=== PATIENT | female | born 1995 | race Caucasian/White ===

== ENCOUNTER → 2016-12-05 | Outpatient (CLI) | payer OTHER ==
[2016-12-05 12:25] LABS: Basophils % (A) 1 %; CH 27.2; CHCM 32.5; Eosinophils % (A) 1 %; HCT 45.2 % (34.0-46.0); HDW 2.44; HGB 14.5 gm/dL (11.4-16.0); Luc # (Auto) 0.13; Luc % (Auto) 4; Lymphocytes # (A) 1.4 k/uL (1.0-4.8); Lymphocytes % (A) 41 %; MCH 26.9 pg (25.0-35.0); MCV 84.1 fL (80.0-100.0); Mean Platelet Volume 6.1; Monocytes # (A) 0.3 k/uL (0-1.0); Monocytes % (A) 9 %; Neutrophils # (A) 1.5 k/uL (1.3-7.7); Neutrophils % (A) 45 %; RBC 5.38 m/uL (3.80-5.40); RDW 13.5 % (11.5-15.5); WBC 3.4 k/uL (4.0-11.0); WBC (Perox) 3.48
[2016-12-05 13:08] LABS: ALT 23 U/L (9-52); AST 19 U/L (14-36); Alkaline Phosphatase 66 U/L (38-126); Anion Gap 11 mmol/L; Blood Urea Nitrogen 14 mg/dL (7-17); Calcium 9.1 mg/dL (8.4-10.2); Carbon Dioxide 24 mmol/L (22-30); Chloride 105 mmol/L (98-107); Cholesterol 155 mg/dL (<200); Glucose 93 mg/dL (74-99); HDL Cholesterol 55 mg/dL (40-60); Non-African American GFR(MDRD) >60 (>60 ml/min/1.73 sqM); Potassium 3.8 mmol/L (3.5-5.1); Sodium 140 mmol/L (137-145); Total Bilirubin 0.6 mg/dL (0.2-1.3); Total Protein 6.5 g/dL (6.3-8.2); Triglycerides 81 mg/dL (<150)
== END | disposition home or self-care (01) ==
LOC: LABWHC1 12:00
PROVIDERS: ATTEND Family Medicine
DX: Z00.01 Encounter for general adult medical examination with abnormal findings (principal); R62.50 Unspecified lack of expected normal physiological development in childhood
CPT/HCPCS: 36415; 80053; 80061; 84443; 85025

== ENCOUNTER 2017-08-07 10:30 | Emergency (ER) | payer OTHER ==
[2017-08-07 10:46] VITALS: PULSE 78; TEMP 97.5
[2017-08-07 10:51] VITALS: RESP 18
--- NOTE | 2017-08-07 11:15 | ED ---
General Adult HPI - General Chief complaint: Fever Stated complaint: Not eating or sleeping Time Seen by Provider: 08/07/17 10:49 Source: patient, family, RN notes reviewed Mode of arrival: wheelchair Limitations: no limitations - History of Present Illness Initial comments: Complaint and history of present illness is a 21-year-old female with severe Down syndrome. Here with her mother. Mother reports that her daughter has not been eating or drinking much lately. Acting as though she is ill. Patient is unable to describe any feelings. Recently the patient was placed on medication for thrush. The thrush has since gone away. Mother is worried about a possible pneumonia or influenza. - Related Data Home Medications Medication Instructions Recorded Confirmed Cephalexin [Keflex Susp] 250 mg PO TID 08/07/17 08/07/17 Nystatin 100,000Unit/gm Cream 1 applic TOPICAL DAILY 08/07/17 08/07/17 [Mycostatin Cream] Previous Rx's Medication Instructions Recorded Azithromycin [Zithromax Z-pack] 250 mg PO DIRECTED #6 tab 08/07/17 Allergies Allergy/AdvReac Type Severity Reaction Status Date / Time No Known Allergies Allergy Verified 08/07/17 11:14 Review of Systems ROS Statement: Those systems with pertinent positive or pertinent negative responses have been documented in the HPI. Review of systems; patient is unable to answer any questions. Mother reports past medical problems or just Down's syndrome with severe mental retardation. Patient ambulatory only with assistance. The patient's surgeries include ear tubes, and right mastoidectomy. family history no cancers. ALLERGIES none. ROS Other: All systems not noted in ROS Statement are negative. Past Medical History Additional Past Medical History / Comment(s): per mom "no name for her handicap " History of Any Multi-Drug Resistant Organisms: None Reported Past Surgical History: Ear Surgery Additional Past Surgical History / Comment(s): mastoidectomy Past Psychological History: No Psychological Hx Reported Smoking Status: Never smoker Past Alcohol Use History: None Reported Past Drug Use History: None Reported General Exam - General Exam Comments Initial Comments: General: The patient is awake , severe mental retardation, Down syndrome. Noncommunicative. Mother thinks she may have pneumonia or the flu. Child had a fever last week currently afebrile. Recently treated for thrush. Temp 97.5 pulse 78 respiratory rate 20 pulse ox 90% on room air patient not cooperative at might affect the calibration. Eye: Is cross eyed. Pupils equal. Ears, nose, mouth and throat: Mother was able to pry the mouth open this membranes were moist. No evidence of thrush. Neck: Palpable anterior cervical lymphadenopathy. Cardiovascular: Regular heart rate Respiratory: lungs clear to auscultation. Gastrointestinal: Palpation in the abdomen, does not appear to be tender. Back: She is not cooperative enough to determine if there is tenderness to palpation of the extremities. Musculoskeletal: Muscle wasting, chronic due to neurological disorder. Neurological: Severe mental retardation Skin: No rashes Cooperative, appropriate mood & affect, normal judgment. Limitations: no limitations Course Vital Signs 08/07/17 08/07/17 10:42 10:50 Temperature 97.5 F L Pulse Rate 78 Respiratory 18 Rate O2 Sat by Pulse 92 L Oximetry Medical Decision Making - Medical Decision Making Medical decision making; this is a 21-year-old patient with the mother. Weighs 72 pounds. Severely mentally retarded. Influenza AB reported to be negative. Chest x-ray was done and reviewed by radiologist his impression is there is no pleural effusion, or pneumothorax seen. Difficult to exclude airspace disease on the left. Cardiac silhouette size is within normal limits. Underlying scoliosis is again noted. The osseous structures are intact. Impression difficult to exclude pneumonia. As read by Dr. Rene - Lab Data Lab Results 08/07/17 Range/Units 11:18 Influenza Type A RNA Not Detected (Not Detectd) Influenza Type B (PCR) Not Detected (Not Detectd) Disposition Clinical Impression: Infiltrate of lung present on imaging of chest Disposition: HOME SELF-CARE Condition: Stable Instructions: Fever in Adults (ED), Pneumonitis (ED) Additional Instructions: Encouraged fluids. Provide medications as directed. Follow-up family physician return emergency room should be any changes. Prescriptions: Azithromycin [Zithromax Z-pack] 250 mg PO DIRECTED #6 tab Referrals: Kelly Lyn MD [Primary Care Provider] - 1-2 days Time of Disposition: 12:23
--- NOTE | 2017-08-07 11:52 | XR ---
EXAMINATION TYPE: XR chest 1V portable DATE OF EXAM: 08/07/2017 COMPARISON: Prior chest x-ray 03/02/2013 HISTORY: Cough, Down syndrome TECHNIQUE: Single frontal view of the chest is obtained. FINDINGS: There is no pleural effusion, or pneumothorax seen. Difficult to exclude airspace disease on the left. The cardiac silhouette size is within normal limits. Underlying scoliosis is again note d. The osseous structures are intact. IMPRESSION: Difficult to exclude pneumonia.
== END 2017-08-07 12:28 | disposition home or self-care (01) ==
LOC: EC 10:30
DX: R91.8 Other nonspecific abnormal finding of lung field (principal); Z79.899 Other long term (current) drug therapy
CPT/HCPCS: 71045; 87502; 99283

== ENCOUNTER 2017-08-29 16:13 | Inpatient (IN) | payer OTHER ==
[2017-08-29] MEDS ORDERED: ACETAMINOPHEN TAB 500 MG TAB PO STA (16:51)
--- NOTE | 2017-08-29 17:07 | ED ---
Fever HPI - General Chief Complaint: Fever Stated Complaint: High Fever, Chills, Flu 2 weeks ago Time Seen by Provider: 08/29/17 16:36 Source: family Mode of arrival: wheelchair Limitations: altered mental status, physical limitation - History of Present Illness Initial Comments: This is a 21-year-old female who presents with a chief complaint of fever which began today. The patient's history was taken from her mother because the patient is non-verbal. She denies nausea, vomiting, diarrhea, cough, or congestion. She recently was diagnosed with pneumonia, and treated outpatient with azithromycin. Her symptoms resolved after completion of the antibiotic. She has not had any symptoms until the fever today. - Related Data Home Medications Medication Instructions Recorded Confirmed L.acidoph,Paracasei, B.lactis 1 cap PO DAILY 08/29/17 08/29/17 [Probiotic] Allergies Allergy/AdvReac Type Severity Reaction Status Date / Time No Known Allergies Allergy Verified 08/29/17 16:50 Review of Systems ROS Statement: Those systems with pertinent positive or pertinent negative responses have been documented in the HPI. ROS Other: All systems not noted in ROS Statement are negative. Past Medical History Additional Past Medical History / Comment(s): per mom "no name for her handicap " History of Any Multi-Drug Resistant Organisms: None Reported Past Surgical History: Ear Surgery Additional Past Surgical History / Comment(s): mastoidectomy Past Psychological History: No Psychological Hx Reported Smoking Status: Never smoker Past Alcohol Use History: None Reported Past Drug Use History: None Reported General Exam Limitations: altered mental status, physical limitation General appearance: alert, in no apparent distress Head exam: Present: atraumatic, normocephalic, normal inspection Neck exam: Present: normal inspection. Absent: tenderness, meningismus, lymphadenopathy Respiratory exam: Present: normal lung sounds bilaterally. Absent: respiratory distress, wheezes, rales, rhonchi, stridor Cardiovascular Exam: Present: tachycardia GI/Abdominal exam: Present: soft, normal bowel sounds. Absent: distended, tenderness, guarding, rebound, rigid Back exam: Present: normal inspection Neurological exam: Present: alert Psychiatric exam: Present: normal affect, normal mood Skin exam: Present: warm, dry, intact, normal color. Absent: rash Course Vital Signs 08/29/17 08/29/17 08/29/17 16:17 17:36 18:58 Temperature 101.0 F H Pulse Rate 138 H 140 H Respiratory 24 19 22 Rate Blood Pressure 126/60 O2 Sat by Pulse 97 95 Oximetry Medical Decision Making - Medical Decision Making This 21-year-old patient presented with a fever that began today. The patient was given Tylenol and Benadryl to reduce the fever. She was also given IV fluids. Chest x-ray reveals evidence of pneumonia. She was negative for Influenza. The remaining labs were unremarkable. Blood cultures are still pending. Due to the patient's failed outpatient treatment of pneumonia and her current symptoms, she will be admitted for treatment. - Lab Data Result diagrams: 08/29/17 17:42 08/29/17 17:42 Lab Results 08/29/17 08/29/17 08/29/17 Range/Units 16:52 17:42 17:42 WBC 5.1 (4.0-11.0) k/uL RBC 5.24 (3.80-5.40) m/uL Hgb 13.8 (11.4-16.0) gm/dL Hct 42.4 (34.0-46.0) % MCV 81.0 (80.0-100.0) fL MCH 26.4 (25.0-35.0) pg MCHC 32.6 (31.0-37.0) g/dL RDW 13.1 (11.5-15.5) % Plt Count 257 (150-450) k/uL Neutrophils % 77 % Lymphocytes % 9 % Monocytes % 12 % Eosinophils % 0 % Basophils % 1 % Neutrophils # 3.9 (1.3-7.7) k/uL Lymphocytes # 0.4 L (1.0-4.8) k/uL Monocytes # 0.6 (0-1.0) k/uL Eosinophils # 0.0 (0-0.7) k/uL Basophils # 0.0 (0-0.2) k/uL Sodium 138 (137-145) mmol/L Potassium 4.1 (3.5-5.1) mmol/L Chloride 100 (98-107) mmol/L Carbon Dioxide 25 (22-30) mmol/L Anion Gap 13 mmol/L BUN 14 (7-17) mg/dL Creatinine 0.90 (0.52-1.04) mg/dL Est GFR (MDRD) Af Amer >60 (>60 ml/min/1.73 sqM) Est GFR (MDRD) Non-Af >60 (>60 ml/min/1.73 sqM) Glucose 138 H (74-99) mg/dL Plasma Lactic Acid Justin (0.7-2.0) mmol/L Calcium 9.7 (8.4-10.2) mg/dL Total Bilirubin 0.3 (0.2-1.3) mg/dL AST 41 H (14-36) U/L ALT 23 (9-52) U/L Alkaline Phosphatase 67 (38-126) U/L Total Protein 7.2 (6.3-8.2) g/dL Albumin 4.0 (3.5-5.0) g/dL Influenza Type A RNA Not Detected (Not Detectd) Influenza Type B (PCR) Not Detected (Not Detectd) 08/29/17 Range/Units 17:42 WBC (4.0-11.0) k/uL RBC (3.80-5.40) m/uL Hgb (11.4-16.0) gm/dL Hct (34.0-46.0) % MCV (80.0-100.0) fL MCH (25.0-35.0) pg MCHC (31.0-37.0) g/dL RDW (11.5-15.5) % Plt Count (150-450) k/uL Neutrophils % % Lymphocytes % % Monocytes % % Eosinophils % % Basophils % % Neutrophils # (1.3-7.7) k/uL Lymphocytes # (1.0-4.8) k/uL Monocytes # (0-1.0) k/uL Eosinophils # (0-0.7) k/uL Basophils # (0-0.2) k/uL Sodium (137-145) mmol/L Potassium (3.5-5.1) mmol/L Chloride (98-107) mmol/L Carbon Dioxide (22-30) mmol/L Anion Gap mmol/L BUN (7-17) mg/dL Creatinine (0.52-1.04) mg/dL Est GFR (MDRD) Af Amer (>60 ml/min/1.73 sqM) Est GFR (MDRD) Non-Af (>60 ml/min/1.73 sqM) Glucose (74-99) mg/dL Plasma Lactic Acid Justin 1.5 (0.7-2.0) mmol/L Calcium (8.4-10.2) mg/dL Total Bilirubin (0.2-1.3) mg/dL AST (14-36) U/L ALT (9-52) U/L Alkaline Phosphatase (38-126) U/L Total Protein (6.3-8.2) g/dL Albumin (3.5-5.0) g/dL Influenza Type A RNA (Not Detectd) Influenza Type B (PCR) (Not Detectd) Disposition Clinical Impression: Fever, Pneumonia Disposition: ADMITTED IP TO THIS HOSP Condition: Stable Referrals: Kelyl Lyn MD [Primary Care Provider] - 1-2 days Decision Date: 08/29/17 Decision Time: 19:07
--- NOTE | 2017-08-29 17:18 | XR ---
EXAMINATION TYPE: XR chest 2V DATE OF EXAM: 08/29/2017 COMPARISON: Chest x-ray August 07, 2017 HISTORY: Flulike symptoms. History of Down syndrome. TECHNIQUE: Frontal and lateral views of the chest are obtained. FINDINGS: Underlying scoliosis is redemonstrated. There is persistent left hilar opacity. The cardia c silhouette size is stable and upper limits of normal. The osseous structures are intact. IMPRESSION: Possible persistent left midlung infiltrate. No new infiltrate is seen.
[2017-08-29 18:03] LABS: Basophils % (A) 1 %; Eosinophils % (A) 0 %; HCT 42.4 % (34.0-46.0); HGB 13.8 gm/dL (11.4-16.0); Lymphocytes # (A) 0.4 k/uL (1.0-4.8); Lymphocytes % (A) 9 %; MCH 26.4 pg (25.0-35.0); MCHC 32.6 g/dL (31.0-37.0); Mean Platelet Volume 6.5; Monocytes # (A) 0.6 k/uL (0-1.0); Monocytes % (A) 12 %; Neutrophils # (A) 3.9 k/uL (1.3-7.7); Neutrophils % (A) 77 %; Platelet Count 257 k/uL (150-450); RBC 5.24 m/uL (3.80-5.40); RDW 13.1 % (11.5-15.5); WBC 5.1 k/uL (4.0-11.0)
[2017-08-29 18:33] LABS: ALT 23 U/L (9-52); AST 41 U/L (14-36); Alkaline Phosphatase 67 U/L (38-126); Anion Gap 13 mmol/L; Blood Urea Nitrogen 14 mg/dL (7-17); Calcium 9.7 mg/dL (8.4-10.2); Carbon Dioxide 25 mmol/L (22-30); Chloride 100 mmol/L (98-107); Glucose 138 mg/dL (74-99); Potassium 4.1 mmol/L (3.5-5.1); Sodium 138 mmol/L (137-145); Total Bilirubin 0.3 mg/dL (0.2-1.3); Total Protein 7.2 g/dL (6.3-8.2)
[2017-08-29] MEDS ORDERED: diphenhydrAMINE 50 MG/ML 1 ML VIAL IVP STA (18:36)
[2017-08-29] MEDS ORDERED: SODIUM CHLORIDE 0.9% 1,000 ML IV ONE (18:42)
[2017-08-29] MEDS ORDERED: PNEUMONIA PROTOCOL UTILIZED 1 EACH MISC PO PRN (19:07)
[2017-08-29] MEDS ORDERED: LEVOFLOXACIN 750MG-D5W PMX 500 MG in DEXTROSE/WATER 1 150ML.BAG IVPB STA (19:07)
[2017-08-29] MEDS ORDERED: VANCOMYCIN IV PER PHARMACY 1 EACH MISC MISCELLANE PRN (19:12)
[2017-08-29] MEDS ORDERED: ACETAMINOPHEN TAB 500 MG TAB PO PRN (19:13)
[2017-08-29] MEDS ORDERED: VANCOMYCIN 500 MG in SODIUM CHLORIDE 0.9% 250 ML IVPB STA (19:23)
[2017-08-29] MEDS ORDERED: LORazepam 2 MG/ML INJ IV STA (20:27)
[2017-08-29] MEDS ORDERED: ACETAMINOPHEN SUPPOSITORY 650 MG SUPP RECTAL STA (21:00)
[2017-08-29 22:52] VITALS: BMI 20.7
[2017-08-30] MEDS: METOPROLOL TARTRATE 12.5 MG TAB PO SCH ×3 (00:21→21:46)
[2017-08-30] MEDS: SODIUM CHLORIDE 0.9% 1,000 ML IV SCH ×2 (03:48→13:11)
[2017-08-30] MEDS: PIPERACILLIN-TAZOBACTAM 3.375 GM in DEXTROSE/WATER 1 50ML.BAG IVPB SCH ×3 (04:31→18:31)
--- NOTE | 2017-08-30 05:30 | HP ---
HISTORY AND PHYSICAL DATE OF ADMISSION: 08/29/17 CHIEF COMPLAINTS: Fever and chills and history of recent flu. 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 Kelly Lyn in the outpatient setting was sick since July first week according to the mother, the patient initially had flu symptoms. Subsequently patient had apparently pneumonia and the patient taken to emergency room and was given antibiotics. The patient was going to school and the patient was having fever and chills and the patient was taken to [facility] and admitted for further evaluation and treatment. Currently the patient is unresponsive. Most of the history taken in my discussion with staff and as well as review of chart and discussion with the mother who is at the bedside at this time. A chest x-ray which was personally reviewed by me, showed possible left mid lung infiltrate and the patient was admitted for further evaluation and treatment. PAST MEDICAL HISTORY: History of chromosome deletion syndrome, history of seizure disorder, mastoidectomy, history of recent flu and pneumonia. MEDICATIONS: Home medications are: Lactobacillus acidophilus 1 capsule daily. ALLERGIES: None. Family history, social history and review of systems could not be taken at length because of the change in mental status. PHYSICAL EXAM: Patient is stuporous. Pulse is 119, blood pressure is 154/70, respiration 22, temperature 100 degrees, pulse ox 99% on room air. HEENT: Conjunctivae normal. Oral mucosa moist. Neck is no jugular venous distention. No carotid bruit. No lymph nodes enlargement. Cardiovascular S1-S2. No S3, no S4. RESPIRATORY: Breath sounds diminished in the bases. Bilateral scattered rhonchi and crackles. ABDOMEN: Soft, nontender. No mass palpable. Legs no edema. No swelling. NERVOUS SYSTEM: Higher functions as mentioned earlier, moves all 4 limbs, no focal motor or sensory deficits. Lymphatics: No lymph nodes palpable in the neck, axillae or groin. Skin no ulcer, rash, bleeding. LABS: CBC within normal limits. Glucose 138, AST is 41. Influenza is negative. ASSESSMENT: 1. Acute left lower pneumonia possibly gram-negative or aspiration or gram- positive with sepsis. 2. History of recent influenza. 3. Change in mental status, metabolic encephalopathy. 4. 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 5. Increased random blood sugar. 6. History of seizures. 7. History of mastoidectomy. 8. History of ear tubes. 9. History of ovarian ablation. RECOMMENDATIONS AND DISCUSSION: This 21-year-old woman who presented with multiple complex medical issues, we will monitor the patient closely, continue the current treatment, medications, management and symptomatic treatment. Will initiate bronchodilators and empiric antibiotics. Obtain cultures. I would also recommend Pulmonary consultation as well as Infectious Disease consultation. Telemetry. Guarded prognosis because of multiple complex medical issues. Further recommendations to follow. A copy of this dictation being forwarded to Eboni Obrien, who is the primary physician. JOSUE / SNOWN: [id number] / MTDBentley
[2017-08-30] MEDS ORDERED: ACETAMINOPHEN TAB 500 MG TAB PO PRN (07:45)
[2017-08-30] MEDS: LACTOBACILLUS ACIDOPH & BULGAR 1 EACH PACKET PO SCH (07:51)
[2017-08-30] MEDS: HEPARIN SODIUM,PORCINE 5,000 UNIT/ML 1 ML VIAL SQ SCH ×2 (07:51→21:46)
[2017-08-30] MEDS: VANCOMYCIN 500 MG in SODIUM CHLORIDE 0.9% 250 ML IVPB SCH ×2 (08:06→16:27)
[2017-08-30] MEDS: IPRATROPIUM-ALBUTEROL 3 ML NEB INHALATION SCH ×3 (08:45→20:46)
[2017-08-30] MEDS: IBUPROFEN ORAL SUSP 100 MG/5 ML CUP PO PRN ×2 (09:54→23:05)
[2017-08-30] MEDS ORDERED: .ACETAMINOPHEN IV (PEDS) 460 MG in EMPTY BAG 1 BAG IV PRN (11:11)
--- NOTE | 2017-08-30 12:19 | XR ---
EXAMINATION TYPE: XR chest 1V portable DATE OF EXAM: 08/30/2017 COMPARISON: 08/29/2017 INDICATION: Pneumonia TECHNIQUE: Single frontal view of the chest is obtained. FINDINGS: Cardiothymic silhouette appears normal. The pulmonary vasculature is normal. The lungs are clear. Left lung appear clear Scoliosis is present. IMPRESSION: 1. No acute pulmonary process.
--- NOTE | 2017-08-30 14:27 | P.CNPUL ---
History of Present Illness Consult date: 08/30/17 Requesting physician: Ahsan Root Reason for consult: cough, pneumonia, abnormal CXR/CT Chief complaint: High fever, chills, congestive cough, weakness and lethargy History of present illness: Elzbieta is a 21-year-old white female patient, who has an underlying history of chromosomal deletion syndrome, severe developmental challenges, seizure disorder , who was brought to the hospital by her mother on 08/29/2017 at 1613 with complaints of high fevers of 102.7F, chills, lethargy, weakness, congested cough. Patient was recently diagnosed with pneumonia, and was treated on an outpatient basis with azithromycin. Her symptoms improved after completion of the antibiotic, and patient started attending school again at the [employer]. However at school she was noted to spike high fevers again, was increasingly more lethargic and weak, and the parents took her to the hospital. Patient is nonverbal, she only groans, patient's mother is at the bedside and provided much of the history. Chest x- ray from 08/30/2017 showed no acute cardiopulmonary process, patient was noted to have a severe degree of scoliosis. This was a 1 view frontal film, cannot exclude retrocardiac bronchogram, cannot exclude pneumonia. Blood work showed WBC within normal limits of 5.1, hemoglobin of 13.8, electrolytes were within normal limits, normal renal profile, plasma lactic acid was 1.5, influenza screen was negative. Patient presented with a fever of 10 1F, this morning she had a fever as high as 103F. She is tachycardic, her heart rate was initially 136 BPM on admission, currently down to 106 BPM. She is on room air, with a pulse ox of 90% on room air. Her lung sounds are clear, diminished at the bases, no rhonchi or wheezes noted. Patient is resting quietly in bed, on examination she becomes slightly agitated, and groans and tries to get away from the examiner. Per patient's mother, patient is normally very energetic, and outgoing. And her current mentation is a change from her usual baseline. Patient was given a liter of IV 0.9 normal saline bolus, she was started on Zosyn and vancomycin, as well as nebulized treatments. Blood and urine cultures were collected and sent. Sputum culture was ordered, but patient is not expectorating any phlegm. Review of Systems All systems: negative Constitutional: Reports fatigue, Reports lethargy, Reports malaise, Reports weakness, Denies chills, Denies fever Eyes: denies blurred vision, denies pain Ears, nose, mouth and throat: Denies headache, Denies sore throat Cardiovascular: Denies chest pain, Denies shortness of breath Respiratory: Reports respiratory infections, Denies cough Gastrointestinal: Denies abdominal pain, Denies diarrhea, Denies nausea, Denies vomiting Genitourinary: Denies dysuria, Denies hematuria Musculoskeletal: Denies myalgias Integumentary: Denies pruritus, Denies rash Neurological: Denies numbness, Denies weakness Psychiatric: Denies anxiety, Denies depression Endocrine: Denies fatigue, Denies weight change Past Medical History Additional Past Medical History / Comment(s): per mom "no name for her disability" 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 Had seizures last one 7 years ago, mastiodectomy, Ablation ovarian. (to end menstruation) History of Any Multi-Drug Resistant Organisms: None Reported Past Surgical History: Ear Surgery Additional Past Surgical History / Comment(s): mastoidectomy, Ear tubes 7 sets. Past Anesthesia/Blood Transfusion Reactions: No Reported Reaction Past Psychological History: No Psychological Hx Reported Smoking Status: Never smoker Past Alcohol Use History: None Reported Past Drug Use History: None Reported Medications and Allergies Home Medications Medication Instructions Recorded Confirmed Type L.acidoph,Paracasei, B.lactis 1 cap PO DAILY 08/29/17 08/29/17 History [Probiotic] Allergies Allergy/AdvReac Type Severity Reaction Status Date / Time No Known Allergies Allergy Verified 08/29/17 16:50 Physical Exam Vitals: Vital Signs Temp Pulse Pulse Resp BP BP BP 08/30/17 10:37 99.7 F H 08/30/17 09:00 80 08/30/17 08:54 80 08/30/17 07:00 103.0 F H 106 H 16 106/87 08/30/17 04:46 16 08/29/17 23:27 98.2 F 136 H 16 107/80 08/29/17 21:31 100.0 F H 119 H 22 155/70 08/29/17 20:45 136 H 08/29/17 18:58 140 H 22 126/60 08/29/17 17:36 19 08/29/17 16:17 101.0 F H 138 H 24 Pulse Ox 08/30/17 10:37 08/30/17 09:00 08/30/17 08:54 08/30/17 07:00 90 L 08/30/17 04:46 08/29/17 23:27 92 L 08/29/17 21:31 99 08/29/17 20:45 95 08/29/17 18:58 95 08/29/17 17:36 08/29/17 16:17 97 Intake and Output 08/29/17 08/30/17 08/30/17 22:59 06:59 14:59 Intake Total 900 Balance 900 Intake: Intake, IV Titration 900 Amount Piperacillin-Tazobactam 3 50 .375 gm In Dextrose/Water 1 50ml.bag @ 100 mls/hr IVPB Q8HR DION Rx#: [id number] Sodium Chloride 0.9% 1, 600 000 ml @ 40 mls/hr IV . Q24H DION Rx#:[id number] Vancomycin 500 mg In 250 Sodium Chloride 0.9% 250 ml @ 125 mls/hr IVPB Q8H DION Rx#:[id number] Other: Voiding Method Diaper Diaper # Voids 2 Weight 30.844 kg GENERAL EXAM: 21-year-old white female, thin, appears much younger than stated age, with signs of developmental delay, resting quietly in bed, withdrawn, unless touched. Becomes agitated with examination, does not like to be touched other than by her mother. The mother's assistance was requested with the patient's exam. Patient's bilateral arms and hands are wrapped with Kerlix for protection of the IV lines HEAD: Normocephalic/atraumatic. EYES: Normal reaction of pupils, equal size. Conjunctiva pink, sclera white. NOSE: Clear with pink turbinates. THROAT: No erythema or exudates. NECK: No masses, no JVD, no thyroid enlargement, no adenopathy. CHEST: Patient has a severe scoliosis of the spine LUNGS: Lung sounds are diminished, but no rhonchi, no rales noted. CVS: Regular rate and rhythm, normal S1 and S2, no gallops, no murmurs, no rubs ABDOMEN: Soft, nontender. No hepatosplenomegaly, normal bowel sounds, no guarding or rigidity. EXTREMITIES: No clubbing, no edema, no cyanosis, 2+ pulses and upper and lower extremities. MUSCULOSKELETAL: Muscle strength and tone normal. Both upper arms and hands are wrapped with Kerlix dressings for protection of the IV lines SPINE: No scoliosis or deformity SKIN: No rashes CENTRAL NERVOUS SYSTEM: Lethargic, but becomes agitated with examination, tries to avoid examination. No focal deficits, tone is normal in all 4 extremities. PSYCHIATRIC: Lethargic, groans, slightly agitated, nonverbal. Results - Laboratory Findings CBC and BMP: 08/29/17 17:42 08/29/17 17:42 Abnormal lab findings: Abnormal Labs 08/29/17 08/29/17 17:42 17:42 Lymphocytes # 0.4 L Glucose 138 H AST 41 H - Diagnostic Findings Chest x-ray: report reviewed Assessment and Plan Plan: Assessment: #1. Acute community-acquired pneumonia, on chest x-ray from 08/30/2017 retrocardiac bronchograms seen, consistent with left lung pneumonia. Patient presented with high fevers, of 102.7 degrees Fahrenheit, lethargy, weakness, congestive cough #2. Acute sepsis, due to the above. Patient presented with altered mental status, lethargy, weakness, fatigue, high fevers #3. Recent history of influenza #4. 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 History of seizures #6. History of ear tubes #7. History of mastoidectomy Plan: Continue Zosyn and vancomycin, continue nebulized treatments. Continue IV hydration, GI and DVT prophylaxis. Agree with ID service recommendation. Will await the results of the final cultures. We'll continue to follow with you I performed a history & physical examination of the patient and discussed their management with my nurse practitioner, Carmen Ghosh. I reviewed the nurse practitioner's note and agree with the documented findings and plan of care. Lung sounds are clear, diminished. The findings and the impression was discussed with the patient. I attest to the documentation by the nurse practitioner. Time with Patient: Greater than 30
--- NOTE | 2017-08-30 18:46 | PN ---
PROGRESS NOTE DATE OF SERVICE: 08/30/2017 This 21-year-old woman who was admitted with possible pneumonia also had recent flu- like syndrome. The patient has a fever and diminished p.o. intake also. The patient is on broad-spectrum IV antibiotics. Dr. German is also following the patient closely. The patient continues to be unresponsive. The patient had features of sepsis on presentation. PAST MEDICAL HISTORY: Reviewed. REVIEW OF SYSTEMS: Could not be taken. CURRENT MEDICATIONS: 2. DuoNeb q.i.d. and p.r.n. 3. Heparin b.i.d. 4. Motrin p.r.n. 5. Lactinex 1 tab p.o. daily. 6. Lopressor 12.5 mg b.i.d. 7. Vancomycin. 8. Zosyn 3.65 IV q.8h. 9. Vancomycin. PHYSICAL EXAM: The pulse is 98, blood pressure 199/50, respirations 16, temperature 97.7, pulse ox 94% room air. HEENT: Conjunctivae normal. Oral mucosa moist. NECK: No jugular venous distention. No carotid bruit. No lymph node enlargement. CARDIOVASCULAR: S1, S2. RESPIRATORY: Breath sounds diminished in the bases. Bilateral scattered rhonchi and crackles. Expiratory wheezing also present. ABDOMEN: Soft, nontender. NERVOUS SYSTEM: Diffusely weak. LYMPHATICS: No lymphadenopathy in the neck, axillae, groin. SKIN: No ulcers, rashes, bleeding. LABS: CBC within normal limits. Glucose 130. Influenza is negative. Cultures are negative so far. ASSESSMENT: 1. Acute left lower pneumonia possibly gram-negative or aspiration or gram- positive pneumonia with sepsis, present on admission. 2. History of recent influenza. 3. Change in mental status, acute metabolic encephalopathy. 4. History of mentally challenged with syndrome. 5. Increased random blood sugar. 6. History of seizure disorder. 7. History of hysterectomy. 8. History of inner ear tubes. 9. History of uterine ablation. RECOMMENDATIONS AND DISCUSSION: I recommend to continue current medications, continue to monitor, symptomatic treatment. Otherwise at this time I would recommend broad-spectrum IV antibiotics, bronchodilators. Closely monitor. Follow with pulmonary Dr. German. Discussed with the patient's mother at bedside at length. Guarded prognosis. Further recommendations to follow. MMODL / IJN: [id number] / [facility]
--- NOTE | 2017-08-30 19:25 | CONS ---
CONSULTATION DATE OF SERVICE: 08/30/2017. REASON FOR CONSULTATION: Sepsis and antibiotic recommendation. HISTORY OF PRESENT ILLNESS: The patient is a 21-year-old female with past medical history significant for underlying chromosomal deletion syndrome, severe developmental delay, seizure disorder. Apparently the patient did have symptoms suggestive of the flu in the middle of July. The patient's symptoms responded. Subsequently she was seen at the [facility] ER where the patient was diagnosed with pneumonia and has been treated with oral Zithromax. Her mother who provided most of the history said the patient's symptoms initially improved and the patient was going to her special needs school. However, the patient did have fever 102 degrees Fahrenheit yesterday and the patient has been brought to the ER for further evaluation. Patient noted to be very weak and lethargic, erythema and did have a congested cough. With these symptoms the patient was evaluated by the ER physician. The patient did have a chest x-ray that showed left-sided infiltrate that persists. The patient did have a fever off 101 degrees Fahrenheit. The patient was tachycardic with heart rate 138 to 140s. O2 sats were 97 to 90%. The patient did have a normal white count. Influenza serology was negative. The patient did have a blood culture obtained which is currently pending as well as urine. Sputum has been ordered but has not been collected. She was started on broad-spectrum IV antibiotics in the form of Vanco and Zosyn and admitted to the hospital. ID was consulted for further recommendation regarding antibiotic therapy. Most of this information has been obtained from prior review of the chart and talking to the mother as the patient is unable to provide reliable history. REVIEW OF SYSTEMS: Could not be reliably obtained. The positive points have been mentioned in HPI. PAST MEDICAL HISTORY: Significant for the chromosomal abnormality, seizure disorder. PAST SURGICAL HISTORY: Mastoidectomy, ear tubes. SOCIAL HISTORY: No history of smoking, drinking or drug use. FAMILY HISTORY: No pertinent findings noticed. ALLERGIES: No known drug allergies. MEDICATION: Medications include the patient is currently on Tylenol, DuoNeb, heparin, Motrin, Lactinex, Lopressor, nystatin cream, pip-tazobactam and vancomycin. EXAMINATION: Blood pressure 109/58 with a pulse of 98, temperature 97.7, T-max is 101. She is 95% on room air. General description is a young female lying in bed in no distress. No tachypnea or accessory muscle of respiration use. HEENT EXAMINATION: No pallor or scleral icterus. Oral mucosa is dry. NECK: Trachea central. No thyromegaly. LUNGS: Unlabored breathing. Coarse breath sounds at the bases bilaterally. No wheeze. HEART: S1, S2. Regular rate and rhythm. ABDOMEN: Soft, no tenderness. No guarding or rigidity. EXTREMITIES: No edema of the feet. SKIN EXAMINATION: No rash or mass palpable. NEUROLOGICAL: Patient is awake, alert. However orientation could not be determined because of underlying developmental delay and mental condition. LABS: Hemoglobin 13.2, white count of 5.1 with a BUN of 14, creatinine 0.90. Blood culture obtained currently pending. Influenza serology was negative. Chest x-ray with left midlung infiltrate. DIAGNOSTIC IMPRESSION AND PLAN: Patient presented to the hospital with a fever of 102 to 103 degrees Fahrenheit. The patient was tachycardic. Source is left-sided pneumonia in a patient with possibly influenza in the middle of July with question of possible positive influenza pneumonia, which could be either resistant gram-positive or gram-negative such as MRSA or Pseudomonas failing outpatient Zithromax therapy. PLAN: 1. Vancomycin pharmacy to dose while watching kidney function very closely in addition to the Zosyn to provided added coverage for possible influenza pneumonia. 2. We will try to obtain sputum for Gram stain, culture and sensitivity. 3. We will follow up on the clinical condition as well as cultures to further adjust medication if needed. Thank you for this consultation. Will follow this patient along with you. MMODL / IJN: [id number] /
[2017-08-30] MEDS: NYSTATIN 100,000UNIT/GM CREAM 30 GM TUBE TOPICAL SCH (21:45)
[2017-08-31] MEDS: PIPERACILLIN-TAZOBACTAM 3.375 GM in DEXTROSE/WATER 1 50ML.BAG IVPB SCH ×4 (00:27→23:02)
[2017-08-31] MEDS: VANCOMYCIN 500 MG in SODIUM CHLORIDE 0.9% 250 ML IVPB SCH ×4 (04:34→20:25)
[2017-08-31] MEDS: ALPRAZolam 0.25 MG TAB PO PRN ×3 (05:30→19:59)
[2017-08-31] MEDS ORDERED: VANCOMYCIN TROUGH DUE 1 EACH MISC MISCELLANE ONE (07:00)
[2017-08-31 07:26] LABS: Basophils % (A) 1 %; Eosinophils % (A) 0 %; HCT 37.1 % (34.0-46.0); HGB 11.7 gm/dL (11.4-16.0); Lymphocytes # (A) 0.7 k/uL (1.0-4.8); Lymphocytes % (A) 30 %; MCH 26.4 pg (25.0-35.0); MCHC 31.6 g/dL (31.0-37.0); MCV 83.7 fL (80.0-100.0); Mean Platelet Volume 6.7; Monocytes # (A) 0.1 k/uL (0-1.0); Monocytes % (A) 6 %; Neutrophils # (A) 1.5 k/uL (1.3-7.7); Neutrophils % (A) 61 %; Platelet Count 138 k/uL (150-450); RBC 4.43 m/uL (3.80-5.40); RDW 13.5 % (11.5-15.5); WBC 2.4 k/uL (4.0-11.0)
[2017-08-31 07:53] LABS: Anion Gap 10 mmol/L; Blood Urea Nitrogen 12 mg/dL (7-17); Calcium 8.5 mg/dL (8.4-10.2); Carbon Dioxide 23 mmol/L (22-30); Chloride 106 mmol/L (98-107); Glucose 88 mg/dL (74-99); Magnesium 1.7 mg/dL (1.6-2.3); Potassium 3.8 mmol/L (3.5-5.1); Sodium 139 mmol/L (137-145)
[2017-08-31] MEDS: NYSTATIN 100,000UNIT/GM CREAM 30 GM TUBE TOPICAL SCH ×2 (08:52→20:16)
[2017-08-31] MEDS: HEPARIN SODIUM,PORCINE 5,000 UNIT/ML 1 ML VIAL SQ SCH ×2 (08:54→20:14)
[2017-08-31] MEDS: LACTOBACILLUS ACIDOPH & BULGAR 1 EACH PACKET PO SCH (08:54)
[2017-08-31] MEDS: METOPROLOL TARTRATE 12.5 MG TAB PO SCH ×2 (08:54→20:14)
[2017-08-31] MEDS ORDERED: IPRATROPIUM-ALBUTEROL 3 ML NEB INHALATION SCH ×2 (08:59→09:02)
[2017-08-31] MEDS: IPRATROPIUM-ALBUTEROL 3 ML NEB INHALATION SCH ×3 (11:16→20:23)
--- NOTE | 2017-08-31 14:29 | P.PN ---
Subjective Progress Note Date: 08/31/17 Principal diagnosis: Left mid lung community-acquired pneumonia. Elzbieta is a 21-year-old white female patient, who has an underlying history of chromosomal deletion syndrome, severe developmental challenges, seizure disorder , who was brought to the hospital by her mother on 08/29/2017 at 1613 with complaints of high fevers of 102.7F, chills, lethargy, weakness, congested cough. Patient was recently diagnosed with pneumonia, and was treated on an outpatient basis with azithromycin. Her symptoms improved after completion of the antibiotic, and patient started attending school again at the [employer]. However at school she was noted to spike high fevers again, was increasingly more lethargic and weak, and the parents took her to the hospital. Patient is nonverbal, she only groans, patient's mother is at the bedside and provided much of the history. Chest x- ray from 08/30/2017 showed no acute cardiopulmonary process, patient was noted to have a severe degree of scoliosis. This was a 1 view frontal film, cannot exclude retrocardiac bronchogram, cannot exclude pneumonia. Blood work showed WBC within normal limits of 5.1, hemoglobin of 13.8, electrolytes were within normal limits, normal renal profile, plasma lactic acid was 1.5, influenza screen was negative. Patient presented with a fever of 10 1F, this morning she had a fever as high as 103F. She is tachycardic, her heart rate was initially 136 BPM on admission, currently down to 106 BPM. She is on room air, with a pulse ox of 90% on room air. Her lung sounds are clear, diminished at the bases, no rhonchi or wheezes noted. Patient is resting quietly in bed, on examination she becomes slightly agitated, and groans and tries to get away from the examiner. Per patient's mother, patient is normally very energetic, and outgoing. And her current mentation is a change from her usual baseline. Patient was given a liter of IV 0.9 normal saline bolus, she was started on Zosyn and vancomycin, as well as nebulized treatments. Blood and urine cultures were collected and sent. Sputum culture was ordered, but patient is not expectorating any phlegm. The patient is seen again today 08/31/2017 in follow-up on the regular medical floor. She is currently awake in no apparent distress. Mom is at the bedside. She did have a temp of 100.1 last evening. Currently 98.0. She is less tachycardic. Less tachypneic. Maintaining O2 saturations in the low 90s on room air. Hemodynamically stable. Blood culture reveals no growth to date. White count 2.4. Hemoglobin 11.7. Creatinine 0.85. She is continued on vancomycin and Zosyn. Bronchodilators 3 times a day. Objective - Vital Signs Vital signs: Vital Signs Temp 98.0 F 08/31/17 07:00 Pulse 124 H 08/31/17 13:57 Resp 18 08/31/17 08:00 BP 119/67 08/30/17 22:21 Pulse Ox 93 L 08/30/17 22:21 Intake & Output 08/30/17 08/31/17 08/31/17 18:59 06:59 18:59 Intake Total 1016 120 Balance 1016 120 Weight 30.844 kg Intake: Intake, IV Titration 716 Amount .acetaminophen IV (Peds) 46 460 mg In Empty Bag 1 bag @ 100 mls/hr IV Q6H [facility] Rx#:[id number] Piperacillin-Tazobactam 3 100 .375 gm In Dextrose/Water 1 50ml.bag @ 100 mls/hr IVPB Q8HR [facility] Rx#: [id number] Sodium Chloride 0.9% 1, 320 000 ml @ 40 mls/hr IV . Q24H [facility] Rx#:[id number] Vancomycin 500 mg In 250 Sodium Chloride 0.9% 250 ml @ 125 mls/hr IVPB 0500 ,1300,2100 [facility] Rx#: [id number] Oral 300 120 Other: Voiding Method Diaper Diaper Diaper # Voids 3 1 # Bowel Movements 1 - Exam GENERAL EXAM: 21-year-old white female, thin, appears much younger than stated age, with signs of developmental delay, resting quietly in bed, withdrawn, unless touched. Becomes agitated with examination, does not like to be touched other than by her mother. The mother's assistance was requested with the patient's exam. Patient's bilateral arms and hands are wrapped with Kerlix for protection of the IV lines HEAD: Normocephalic/atraumatic. EYES: Normal reaction of pupils, equal size. Conjunctiva pink, sclera white. NOSE: Clear with pink turbinates. THROAT: No erythema or exudates. NECK: No masses, no JVD, no thyroid enlargement, no adenopathy. CHEST: Patient has a severe scoliosis of the spine LUNGS: Lung sounds are diminished, but no rhonchi, no rales noted. CVS: Regular rate and rhythm, normal S1 and S2, no gallops, no murmurs, no rubs ABDOMEN: Soft, nontender. No hepatosplenomegaly, normal bowel sounds, no guarding or rigidity. EXTREMITIES: No clubbing, no edema, no cyanosis, 2+ pulses and upper and lower extremities. MUSCULOSKELETAL: Muscle strength and tone normal. Both upper arms and hands are wrapped with Kerlix dressings for protection of the IV lines SPINE: No scoliosis or deformity SKIN: No rashes CENTRAL NERVOUS SYSTEM: Alert, but becomes agitated with examination, tries to avoid examination. No focal deficits, tone is normal in all 4 extremities. PSYCHIATRIC: Alert, slightly agitated, nonverbal. - Labs CBC & Chem 7: 08/31/17 06:49 08/31/17 06:49 Labs: Abnormal Lab Results - Last 24 Hours (Table) 08/31/17 Range/Units 06:49 WBC 2.4 L (4.0-11.0) k/uL Plt Count 138 L (150-450) k/uL Lymphocytes # 0.7 L (1.0-4.8) k/uL Microbiology - Last 24 Hours (Table) 08/29/17 17:42 Blood Culture - Preliminary Blood No Growth after 24 hours Assessment and Plan Assessment: Assessment: #1. Acute community-acquired pneumonia, on chest x-ray from 08/30/2017 retrocardiac bronchograms seen, consistent with left lung pneumonia. Patient presented with high fevers, of 102.7 degrees Fahrenheit, lethargy, weakness, congestive cough #2. Acute sepsis, due to the above. Patient presented with altered mental status, lethargy, weakness, fatigue, high fevers #3. Recent history of influenza #4. 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 History of seizures #6. History of ear tubes #7. History of mastoidectomy Plan: The patient was seen and evaluated by Dr. German. We will continue with her current treatment plan including antibiotics in the form of vancomycin and Zosyn along with nebulized treatments. Continue with IV hydration. We'll repeat a chest x-ray in the a.m. She is more alert today as compared to yesterday. Less tachycardic, less tachypneic. Afebrile this morning. We'll continue to follow make further recommendations based on her clinical status. I, the cosigning physician, performed a history & physical examination of the patient. Lungs sounds scattered rhonchi in the left.. Maintaining good O2 saturations in the 90s on room air. I discussed the assessment and plan of care with my nurse practitioner, Simi Pak. I attest to the above note as dictated by her.
--- NOTE | 2017-08-31 18:56 | PN ---
PROGRESS NOTE DATE OF SERVICE: 08/31/2017. INTERVAL HISTORY: This 21-year-old woman was admitted with left lower pneumonia, after fluids being closely monitored. Patient is on broad-spectrum IV antibiotics. The vancomycin also has been initiated at this time. No chest pain. No palpitations. No fever. EXAM: Pulse is 124. The blood pressure is 119/66, respiration 18, temperature is 100.1, pulse ox 94% on room air. HEENT: Conjunctivae normal. Oral mucosa moist. NECK: No jugular venous distention. CARDIOVASCULAR: S1, S2. RESPIRATORY: Breath sounds diminished in the bases. Bilateral scattered rhonchi and crackles. Expiratory wheezing also present. ABDOMEN: Soft, nontender. LEGS: No edema, no swelling. NERVOUS SYSTEM: No focal deficits. LAB STUDIES: WBC 2.9, hemoglobin 7.7. ASSESSMENT: 1. Acute left lower pneumonia possibly gram-negative aspiration or gram-positive pneumonia with sepsis, present on admission. 2. History of recent influenza. 3. Change in mental status, acute metabolic encephalopathy. 4. 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 5. Increased random blood sugar. 6. History of seizure disorder. 7. History of hysterectomy. 8. History inner ear tubes. 9. History of uterine ablation. RECOMMENDATIONS AND DISCUSSION: I recommend to continue current medical management and symptomatic treatment. Continue the broad-spectrum IV antibiotics and bronchodilators. Closely monitor. Prognosis guarded. Discussed with the family. Further recommendations to follow. MMODL / IJN: [id number] /
[2017-08-31] MEDS: IBUPROFEN ORAL SUSP 100 MG/5 ML CUP PO PRN (20:27)
[2017-09-01 03:31] VITALS: BP 105/62; RESP 16
[2017-09-01] MEDS ORDERED: VANCOMYCIN TROUGH DUE 1 EACH MISC MISCELLANE ONE (04:00)
[2017-09-01 04:08] LABS: Basophils % (A) 1 %; Eosinophils % (A) 1 %; HCT 36.9 % (34.0-46.0); HGB 11.4 gm/dL (11.4-16.0); Lymphocytes # (A) 1.2 k/uL (1.0-4.8); Lymphocytes % (A) 45 %; MCH 25.8 pg (25.0-35.0); MCHC 30.8 g/dL (31.0-37.0); MCV 83.8 fL (80.0-100.0); Mean Platelet Volume 6.9; Monocytes # (A) 0.1 k/uL (0-1.0); Monocytes % (A) 5 %; Neutrophils # (A) 1.2 k/uL (1.3-7.7); Neutrophils % (A) 47 %; Platelet Count 126 k/uL (150-450); RDW 13.7 % (11.5-15.5); WBC 2.6 k/uL (4.0-11.0)
[2017-09-01 04:22] LABS: Anion Gap 10 mmol/L; Blood Urea Nitrogen 7 mg/dL (7-17); Calcium 8.4 mg/dL (8.4-10.2); Carbon Dioxide 24 mmol/L (22-30); Chloride 106 mmol/L (98-107); Glucose 94 mg/dL (74-99); Potassium 3.5 mmol/L (3.5-5.1); Sodium 140 mmol/L (137-145)
[2017-09-01] MEDS: VANCOMYCIN 500 MG in SODIUM CHLORIDE 0.9% 250 ML IVPB SCH (05:32)
[2017-09-01] MEDS: IPRATROPIUM-ALBUTEROL 3 ML NEB INHALATION SCH ×3 (06:58→21:46)
--- NOTE | 2017-09-01 07:43 | XR ---
EXAMINATION TYPE: XR chest 1V portable DATE OF EXAM: 09/01/2017 HISTORY: F/U pneumonia. REFERENCE: Previous study dated 08/30/2017. FINDINGS: The entire right lung is not included on the study. There is a moderate dextroscoliosis. There is patchy bilateral airspace disease. The heart appears enlarged. Pleural spaces are clear. IMPRESSION: PATCHY BILATERAL AIRSPACE DISEASE MAY REPRESENT PNEUMONIA.
[2017-09-01] MEDS: SODIUM CHLORIDE 0.9% 1,000 ML IV SCH (07:56)
[2017-09-01] MEDS: PIPERACILLIN-TAZOBACTAM 3.375 GM in DEXTROSE/WATER 1 50ML.BAG IVPB SCH ×3 (08:06→23:30)
[2017-09-01] MEDS: NYSTATIN 100,000UNIT/GM CREAM 30 GM TUBE TOPICAL SCH ×2 (08:06→20:44)
[2017-09-01] MEDS: METOPROLOL TARTRATE 12.5 MG TAB PO SCH ×2 (08:07→20:44)
[2017-09-01] MEDS: HEPARIN SODIUM,PORCINE 5,000 UNIT/ML 1 ML VIAL SQ SCH (08:07)
[2017-09-01] MEDS: LACTOBACILLUS ACIDOPH & BULGAR 1 EACH PACKET PO SCH (08:07)
--- NOTE | 2017-09-01 11:27 | P.PN ---
Subjective Progress Note Date: 09/01/17 Principal diagnosis: Pneumonia Progress note dated 09/01/2017 21-year-old female mentally handicapped, was admitted with a diagnosis of acute community-acquired pneumonia. She's got a x-ray which shows patchy airspace disease bilaterally. She also presented with high fevers with chest congestion and weakness. She is nonverbal and unable to give any additional history. 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 She also has a history of previous tympanostomy tubes mastoidectomy and a history of seizure disorder. Again the patient is not able to give any history. The patient was started on antibiotics in the form of vancomycin and Zosyn and also started on updraft treatments. She was also given IV hydration with fluids. She doesn't look badly and it really has never look badly since he been here in the hospital. Objective - Vital Signs Vital signs: Vital Signs Temp 98.6 F 09/01/17 07:00 Pulse 130 H 09/01/17 07:10 Resp 16 09/01/17 07:00 BP 105/62 08/31/17 23:00 Pulse Ox 90 L 09/01/17 07:00 Intake & Output 08/31/17 09/01/17 09/01/17 18:59 06:59 18:59 Intake Total 1140 950 Balance 1140 950 Intake: Intake, IV Titration 300 550 Amount Piperacillin-Tazobactam 3 50 50 .375 gm In Dextrose/Water 1 50ml.bag @ 100 mls/hr IVPB Q8HR [facility] Rx#: [id number] Vancomycin 500 mg In 250 500 Sodium Chloride 0.9% 250 ml @ 125 mls/hr IVPB 0500 ,1300,2100 [facility] Rx#: [id number] Oral 840 400 Other: Voiding Method Diaper Diaper Diaper # Voids 3 1 # Bowel Movements 2 1 - Exam Exam is limited as she is not very cooperative and pushes you away. Nonverbal. No respiratory distress. HEENT examination is cursory but appears normal. Neck supple. Full range of motion. Cardiovascular examination reveals regular rhythm rate. Lungs reveal few scattered rhonchi. No wheezes. No crackles. Abdomen soft. Extremities are intact. Skin without rash. Neurologic examination could not properly assessed - Labs CBC & Chem 7: 09/01/17 03:45 02/11/18 03:45 Labs: Abnormal Lab Results - Last 24 Hours (Table) 09/01/17 Range/Units 03:45 WBC 2.6 L (4.0-11.0) k/uL MCHC 30.8 L (31.0-37.0) g/dL Plt Count 126 L (150-450) k/uL Neutrophils # 1.2 L (1.3-7.7) k/uL Microbiology - Last 24 Hours (Table) 08/29/17 17:42 Blood Culture - Preliminary Blood No Growth after 48 hours Assessment and Plan Assessment: Assessment Acute community-acquired pneumonia Acute sepsis. 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 Chest x-ray shows bilateral patchy infiltrates. Medications labs and x-rays are reviewed. Additional recommendations and suggestions are forthcoming. We'll continue to follow closely. Prognosis is guarded. Clinically she does not look ill. Time with Patient: Less than 30
[2017-09-01] MEDS ORDERED: VANCOMYCIN 750 MG in SODIUM CHLORIDE 0.9% 250 ML IVPB SCH (13:00)
--- NOTE | 2017-09-01 17:48 | PN ---
PROGRESS NOTE DATE OF SERVICE: 09/01/2017 This 21-year-old woman who was admitted with acute bilateral pneumonia after episode of flu had mostly lesions on the right side. The patient also had features of sepsis. The patient is on IV antibiotics. Dr. German is following the patient closely. No chest pain. No palpitations. No fever. EXAM: Patient on exam alert. Pulse 81, blood pressure 105/60, respirations 16, temperature 99.7, pulse ox 100% on room air. HEENT: Conjunctivae normal. NECK: No jugular venous distention. CARDIOVASCULAR: S1, S2 muffled. RESPIRATORY: Breath sounds diminished in the bases Bilateral scattered rhonchi left more than right. ABDOMEN: Soft, nontender. NERVOUS SYSTEM: Diffusely weak. LABS: WBC 2.6, and other labs noted. ASSESSMENT: 1. Acute left bilateral pneumonia, left more than the right possibly gram-negative or aspiration or or gram-positive pneumonia with sepsis, present on admission. 2. History of recent influenza. 3. Change in mental status, acute metabolic encephalopathy. 4. 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 5. History of increased random blood sugar. 6. History of seizure disorder. 7. History of hysterectomy. 8. History of inner ear tubes. 9. History of ovarian ablation. 10.Thrombocytopenia. RECOMMENDATION AND DISCUSSION: Continue current management and symptomatic treatment. Repeat labs. I would recommend continue the bronchodilators, continue the antibiotics. Closely follow with pulmonary. Guarded prognosis. Further recommendations to follow. The cultures which has been requested previously is not showing any acute abnormality so far. MMODL / IJN: [id number] /
[2017-09-01 21:43] VITALS: PULSE 92; TEMP 98.3
--- NOTE | 2017-09-01 23:27 | PN ---
PROGRESS NOTE DATE OF SERVICE: 09/01/2017. REASON FOR FOLLOWUP: Pneumonia. INTERVAL HISTORY: The patient is afebrile. She is breathing comfortably. Mother did mention that overall she is feeling better. Oral intake has improved. No choking on the food has been noticed. No nausea, vomiting, or any diarrhea. EXAMINATION: Pulse of 92, temperature of 98.3, she is 92% on room air. GENERAL DESCRIPTION: A middle-aged female, lying in bed in no distress. RESPIRATORY: Unlabored breathing. Coarse breath sounds at bases. No wheeze. HEART: S1, S2. Regular rate and rhythm noted. LABS: Hemoglobin 11.4, white count 12.6 with a BUN of 7, creatinine 0.80. Blood cultures have been negative. DIAGNOSTIC IMPRESSION AND PLAN: Patient with pneumonia. The patient is on Zithromax therapy. Overall improvement on Zosyn. Sputum will not be obtained. Blood culture has been negative. The patient continues to improve, hopefully finish therapy with oral Augmentin for the next 10 days. Continue supportive care. MMODL / IJN: [id number] /
[2017-09-02] MEDS: SODIUM CHLORIDE 0.9% 1,000 ML IV SCH (05:33)
[2017-09-02 07:29] LABS: Basophils % (A) 1 %; Eosinophils % (A) 1 %; HCT 39.7 % (34.0-46.0); HGB 11.9 gm/dL (11.4-16.0); Hypochromasia Slight; Lymphocytes # (A) 1.2 k/uL (1.0-4.8); Lymphocytes % (A) 48 %; MCH 25.3 pg (25.0-35.0); MCV 84.2 fL (80.0-100.0); Mean Platelet Volume 6.6; Monocytes # (A) 0.1 k/uL (0-1.0); Monocytes % (A) 6 %; Neutrophils # (A) 1.1 k/uL (1.3-7.7); Neutrophils % (A) 43 %; Platelet Count 133 k/uL (150-450); RBC 4.71 m/uL (3.80-5.40); RDW 13.7 % (11.5-15.5); WBC 2.5 k/uL (4.0-11.0)
[2017-09-02] MEDS: IPRATROPIUM-ALBUTEROL 3 ML NEB INHALATION SCH ×2 (07:36→13:53)
[2017-09-02 07:53] LABS: Anion Gap 12 mmol/L; Blood Urea Nitrogen 5 mg/dL (7-17); Calcium 8.5 mg/dL (8.4-10.2); Carbon Dioxide 24 mmol/L (22-30); Chloride 107 mmol/L (98-107); Glucose 90 mg/dL (74-99); Potassium 3.9 mmol/L (3.5-5.1); Sodium 143 mmol/L (137-145)
[2017-09-02] MEDS: METOPROLOL TARTRATE 12.5 MG TAB PO SCH (09:22)
[2017-09-02] MEDS: LACTOBACILLUS ACIDOPH & BULGAR 1 EACH PACKET PO SCH (09:22)
[2017-09-02] MEDS: PIPERACILLIN-TAZOBACTAM 3.375 GM in DEXTROSE/WATER 1 50ML.BAG IVPB SCH (09:22)
[2017-09-02] MEDS: NYSTATIN 100,000UNIT/GM CREAM 30 GM TUBE TOPICAL SCH (09:25)
--- NOTE | 2017-09-02 12:25 | PN ---
PROGRESS NOTE DATE OF SERVICE: 09/02/2017 REASON FOR FOLLOWUP VISIT: Pneumonia. INTERVAL HISTORY: The patient is afebrile. She has been breathing comfortably. No nausea, vomiting has been noticed or any diarrhea. Overall, improved by the mother present at bedside. On examination, pulse of 92, temperature 98.3. She is 92% on room air. General description is a middle-aged female lying in bed, in no distress. RESPIRATORY SYSTEM: Unlabored breathing, clear to auscultation anteriorly. HEART: S1, S2. Regular rate and rhythm. ABDOMEN: Soft, no tenderness. LABS: Hemoglobin 9.8, white count 2.5, BUN of 5, creatinine 0.78. Blood culture has been negative. DIAGNOSTIC IMPRESSION AND PLAN: Patient with pneumonia, failing outpatient Zithromax therapy. Overall improvement on Zosyn. Recommend finish therapy with oral Augmentin 500 mg 3 times a day for another 10 days with close outpatient followup. MMODL / IJN: [id number] /
--- NOTE | 2017-09-02 13:50 | P.PN ---
Subjective Progress Note Date: 09/02/17 Principal diagnosis: Pneumonia Progress note dated 09/01/2017 21-year-old female mentally handicapped, was admitted with a diagnosis of acute community-acquired pneumonia. She's got a x-ray which shows patchy airspace disease bilaterally. She also presented with high fevers with chest congestion and weakness. She is nonverbal and unable to give any additional history. 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 She also has a history of previous tympanostomy tubes mastoidectomy and a history of seizure disorder. Again the patient is not able to give any history. The patient was started on antibiotics in the form of vancomycin and Zosyn and also started on updraft treatments. She was also given IV hydration with fluids. She doesn't look badly and it really has never look badly since he been here in the hospital. Progress note dated 09/02/2017 21-year-old female who is mentally handicapped, was admitted with a diagnosis of acute community-acquired pneumonia. She has a chest x-ray which reveals bilateral patchy airspace disease. The patient initially presented with fever and chest congestion and cough coughing and weakness. No history could be obtained from her. She is nonverbal. 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 The patient also has a history of tympanostomy tubes mastoidectomy and history of seizure disorder. The patient may be discharged home today. Augmentin will be a good choice. He should avoid gume quinolones because a lower the seizure threshold. She will need a follow-up chest x-ray to make sure she has complete resolution. Since she was in the hospital, she never look particularly ill. Objective - Vital Signs Vital signs: Vital Signs Temp 98.3 F 09/01/17 21:43 Pulse 92 09/01/17 21:43 Resp 16 09/01/17 15:20 BP 105/62 08/31/17 23:00 Pulse Ox 95 09/02/17 07:00 Intake & Output 09/01/17 09/02/17 09/02/17 18:59 06:59 18:59 Intake Total 600 Balance 600 Weight 30.844 kg Intake: Intake, IV Titration 300 Amount Piperacillin-Tazobactam 3 50 .375 gm In Dextrose/Water 1 50ml.bag @ 100 mls/hr IVPB Q8HR [facility] Rx#: [id number] Vancomycin 500 mg In 250 Sodium Chloride 0.9% 250 ml @ 125 mls/hr IVPB 0500 ,1300,2100 [facility] Rx#: [id number] Oral 300 Other: Voiding Method Diaper Diaper Diaper # Voids 3 2 # Bowel Movements 1 - Exam Exam is limited as she is not very cooperative and pushes you away. Nonverbal. No respiratory distress. HEENT examination is cursory but appears normal. Neck supple. Full range of motion. Cardiovascular examination reveals regular rhythm rate. Lungs reveal few scattered rhonchi. No wheezes. No crackles. Abdomen soft. Extremities are intact. Skin without rash. Neurologic examination could not properly assessed - Labs CBC & Chem 7: 09/02/17 06:56 09/02/17 06:56 Labs: Abnormal Lab Results - Last 24 Hours (Table) 09/02/17 09/02/17 Range/Units 06:56 06:56 WBC 2.5 L (4.0-11.0) k/uL MCHC 30.0 L (31.0-37.0) g/dL Plt Count 133 L (150-450) k/uL Neutrophils # 1.1 L (1.3-7.7) k/uL BUN 5 L (7-17) mg/dL Microbiology - Last 24 Hours (Table) 08/29/17 17:42 Blood Culture - Preliminary Blood No Growth after 72 hours Assessment and Plan Assessment: Assessment Acute community-acquired pneumonia Acute sepsis. 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 Chest x-ray shows bilateral patchy infiltrates. Medications labs and x-rays are reviewed. Additional recommendations and suggestions are forthcoming. We'll continue to follow closely. Prognosis is guarded. Clinically she does not look ill. Plan dated September 02 2017 The patient may very well be discharged today. She should go home on Augmentin 500/2025 twice a day for another 7 days. She will need a follow-up chest x-ray to ensure that there is clearing of the infiltrates bilaterally. No additional recommendations are made. She would not be a good candidate for inhaler she wouldn't be able to do it. Likewise, she may not tolerate a nebulizer machine. We'll continue to follow. No additional recommendations or name. Prognosis is guarded. Time with Patient: Less than 30
--- NOTE | 2017-09-02 17:18 | DS ---
DISCHARGE SUMMARY FINAL DIAGNOSES: 1. Acute bilateral pneumonia, left more than right, possibly gram-negative or aspiration or gram-positive pneumonia with sepsis present on admission. 2. History of recent influenza. 3. Change in mental status, acute metabolic encephalopathy. 4. 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 5. History of increased random blood sugar. 6. History of seizure disorder. 7. History of hysterectomy. 8. History of inner ear tubes. 9. History of ovarian ablation. 10.History of thrombocytopenia. DISCHARGE CONDITION: The patient will be discharged in stable condition with guarded prognosis. Total time taken is greater than 35 minutes. HISTORY OF PRESENT ILLNESS: This 21-year-old women with a history of multiple medical problems, was admitted with acute left bilateral pneumonia. Patient was treated with IV antibiotics. Patient was started on broad spectrum IV antibiotics. The patient also had recent flu-like episode. The patient was referred to Dr. German and care was coordinated. Cultures showed no acute abnormality. PHYSICAL EXAMINATION: On exam, vital signs stable. Cardiovascular system, S1 and S2. Abdomen soft. No focal deficits. Few rhonchi and crackles. DISCHARGE INSTRUCTIONS: 1. Diet is cardiac. 2. Activity limited. 3. Follow up with Dr. German in 2 to 3 days. 4. Follow up with Dr. Kelly Lyn in 3 days. MEDICATIONS: 1. Albuterol 2 puffs q.i.d. p.r.n. 2. Augmentin 1 tab p.o. b.i.d. for 10 days. 3. Symbicort 1 puff b.i.d. 4. Probiotic 1 daily. 5. Lopressor 12.5 mg daily to be titrated off at home. 6. Nystatin for local application. MMODL / IJN: [id number] /
== END 2017-09-02 15:05 | disposition home health service (06) | DRG 871 ==
LOC: EC 16:13 → 5MS5E 18:52
PROVIDERS: ADMIT Hospitalist; ATTEND Hospitalist
DX: A41.9 Sepsis, unspecified organism (principal); J15.6 Pneumonia due to other Gram-negative bacteria; J69.0 Pneumonitis due to inhalation of food and vomit; G93.41 Metabolic encephalopathy; D69.6 Thrombocytopenia, unspecified; Q93.4 Deletion of short arm of chromosome 5; G40.909 Epilepsy, unspecified, not intractable, without status epilepticus; M41.9 Scoliosis, unspecified; Z79.1 Long term (current) use of non-steroidal anti-inflammatories (NSAID); Z90.710 Acquired absence of both cervix and uterus; Z79.899 Other long term (current) drug therapy
CPT/HCPCS: 36415; 71045; 71046; 80048; 80053; 80202; 83605; 83735; 85025; 87040; 87502; 94640; 96361; 96365; 96374; 96375; 99284

== ENCOUNTER → 2017-09-10 | Outpatient (CLI) | payer OTHER ==
--- NOTE | 2017-09-10 11:57 | XR ---
EXAMINATION TYPE: XR chest 2V DATE OF EXAM: 09/10/2017 COMPARISON: 09/01/2017 HISTORY: 21-year-old female follow-up pneumonia TECHNIQUE: AP and lateral views FINDINGS: Marked S-shaped scoliosis. Focal left mid lung infiltrate persists. Heart upper limits of normal in s ize. Background of mild diffuse interstitial prominence. No significant pleural effusion seen. IMPRESSION: The left perihilar infiltrate has not yet resolved. S-shaped scoliosis.
== END | disposition home or self-care (01) ==
LOC: RADXRMAIN 11:10
PROVIDERS: ATTEND Family Medicine
DX: R91.8 Other nonspecific abnormal finding of lung field (principal)
CPT/HCPCS: 71046

== ENCOUNTER → 2017-09-18 | Outpatient (CLI) | payer OTHER ==
--- NOTE | 2017-09-18 12:29 | XR ---
EXAMINATION TYPE: XR chest 2V DATE OF EXAM: 09/18/2017 COMPARISON: 09/10/2017 HISTORY: Chest pain TECHNIQUE: Frontal and lateral views of the chest are obtained. FINDINGS: There is no focal air space opacity. No evidence for pneumothorax. No pleural effusion. The cardiac silhouette size is within normal limits. The osseous structures are grossly intact. Severe scoliotic curvature of the thoracic spine convex to the right. IMPRESSION: 1. No acute cardiopulmonary process.
== END | disposition home or self-care (01) ==
LOC: RADXRMAIN 12:03
PROVIDERS: ATTEND Family Medicine
DX: Z09 Encounter for follow-up examination after completed treatment for conditions other than malignant neoplasm (principal); Z87.01 Personal history of pneumonia (recurrent)
CPT/HCPCS: 71046

== ENCOUNTER → 2017-10-08 | Outpatient (CLI) | payer OTHER | END | disposition home or self-care (01) | LOC: RADECHMAIN 08:13 | PROVIDERS: ATTEND Internal Medicine Cardiovascular Disease | DX: Z53.9 Procedure and treatment not carried out, unspecified reason (principal) ==

== ENCOUNTER → 2018-12-02 | Outpatient (CLI) | payer OTHER ==
[2018-12-02 10:00] LABS: Basophils % (A) 1 %; Eosinophils # (A) 0.1 k/uL (0-0.7); Eosinophils % (A) 2 %; HGB 13.8 gm/dL (11.4-16.0); Lymphocytes # (A) 1.7 k/uL (1.0-4.8); Lymphocytes % (A) 46 %; MCHC 31.4 g/dL (31.0-37.0); Mean Platelet Volume 6.8; Monocytes # (A) 0.3 k/uL (0-1.0); Monocytes % (A) 8 %; Neutrophils # (A) 1.6 k/uL (1.3-7.7); Neutrophils % (A) 41 %; Platelet Count 203 k/uL (150-450); RDW 13.4 % (11.5-15.5); WBC 3.8 k/uL (3.8-10.6)
[2018-12-02 18:53] LABS: ALT 32 U/L (8-44); AST 24 U/L (13-35); Albumin/Globulin Ratio 1.95 (1.60-3.17); Alkaline Phosphatase 52 U/L (41-126); Calcium 8.8 mg/dL (8.7-10.3); Carbon Dioxide 22.4 mmol/L (21.6-31.8); Chloride 109 mmol/L (96-109); Cholesterol 167 mg/dL (0-200); Glucose 86 mg/dL (70-110); Potassium 4.5 mmol/L (3.5-5.5); Sodium 141 mmol/L (135-145); Total Bilirubin 0.4 mg/dL (0.2-1.2); Total Protein 5.9 g/dL (6.2-8.2); Triglycerides <50.0 mg/dL (0.0-149.0); VLDL Calculation 9.98 mg/dL (5.00-40.00)
== END | disposition home or self-care (01) ==
LOC: LABWHC1 08:41
PROVIDERS: ATTEND Family Medicine
DX: Z00.00 Encounter for general adult medical examination without abnormal findings (principal); R62.50 Unspecified lack of expected normal physiological development in childhood
CPT/HCPCS: 36415; 80053; 80061; 82306; 84443; 85025

== ENCOUNTER → 2019-04-29 | Outpatient (CLI) | payer OTHER ==
[2019-04-29 12:26] LABS: HGB 14.7 gm/dL (11.4-16.0); MCH 27.9 pg (25.0-35.0); MCHC 33.4 g/dL (31.0-37.0); MCV 83.4 fL (80.0-100.0); Mean Platelet Volume 5.6; Platelet Count 197 k/uL (150-450); RBC 5.27 m/uL (3.80-5.40); RDW 12.6 % (11.5-15.5); WBC 5.8 k/uL (3.8-10.6)
--- NOTE | 2019-04-29 13:00 | XR ---
EXAMINATION TYPE: XR chest 2V DATE OF EXAM: 04/29/2019 COMPARISON: 09/18/2017 HISTORY: Congestion and cough TECHNIQUE: Frontal and lateral views of the chest are obtained. FINDINGS: There is severe dextro scoliosis of the thoracic spine with splaying of the right ribs and narrowing of the left ribs. New left perihilar opacity and right infrahilar opacity are seen. Lung a pices are well aerated. Cardia mediastinal silhouette is enlarged. No sizable pneumothorax. No acute osseous pathology. IMPRESSION: New left perihilar and right basilar opacities may represent atelectasis or multifocal p neumonia.
[2019-04-29 19:37] LABS: Albumin 4.1 g/dL (3.80-4.90); Albumin/Globulin Ratio 2.28 (1.60-3.17); Anion Gap 14.5 mmol/L (4.00-12.00); BUN/Creat Ratio 18.33 Ratio (12.00-20.00); Calcium 8.9 mg/dL (8.7-10.3); Carbon Dioxide 22.5 mmol/L (21.6-31.8); Globulin 1.8 g/dL (1.6-3.3); Potassium 4.4 mmol/L (3.5-5.5); Total Bilirubin 0.4 mg/dL (0.2-1.2); Total Protein 5.9 g/dL (6.2-8.2); Uric Acid 6.3 mg/dL (2.9-7.7)
== END ==
LOC: LABWHC1 11:12
PROVIDERS: ATTEND Family Medicine
DX: R91.8 Other nonspecific abnormal finding of lung field (principal); R09.81 Nasal congestion; R05 Cough; R10.9 Unspecified abdominal pain
CPT/HCPCS: 36415; 71046; 80053; 82150; 82306; 83690; 84443; 84550; 85027; 87502

== ENCOUNTER → 2019-05-06 | Outpatient (CLI) | payer OTHER ==
--- NOTE | 2019-05-06 15:11 | XR ---
EXAMINATION TYPE: XR chest 2V DATE OF EXAM: 05/06/2019 COMPARISON: 04/29/2019 INDICATION: Pneumonia, J 18.9 TECHNIQUE: Frontal and lateral views of the chest are obtained. FINDINGS: The heart size is normal. The pulmonary vasculature is normal. No suspicious infiltrates are evident.. Previous left hilar infiltrate appears resolved. Scoliosis is present. IMPRESSION: 1. No acute pulmonary process.
== END | disposition home or self-care (01) ==
LOC: RADXRMAIN 14:23
PROVIDERS: ATTEND Family Medicine
DX: J18.1 Lobar pneumonia, unspecified organism (principal)
CPT/HCPCS: 71046

== ENCOUNTER → 2019-07-28 | Outpatient (CLI) | payer OTHER ==
--- NOTE | 2019-07-28 12:17 | XR ---
EXAMINATION TYPE: XR chest 2V DATE OF EXAM: 07/28/2019 COMPARISON: 05/06/2019 TECHNIQUE: PA and lateral views submitted. HISTORY: Cough FINDINGS: Scoliosis noted. There is bilateral lower lobe infiltrate. Mild prominence of interstitium with no pn eumothorax. Deformity of the left rib cage stable. No pneumothorax. Heart size stable. IMPRESSION: 1. Basilar atelectasis versus infiltrate correlate clinically. Central interstitium is stable from pr ior exam could be associated with bronchitis or interstitial pneumonitis. Venous congestion not exclu ded. Correlate clinically.
== END | disposition home or self-care (01) ==
LOC: RADXRMAIN 11:39
PROVIDERS: ATTEND Nurse Practitioner Family
DX: R05 Cough (principal)
CPT/HCPCS: 71046

== ENCOUNTER 2020-11-17 12:38 | Emergency (ER) | payer OTHER ==
[2020-11-17 13:05] VITALS: PULSE 68; RESP 16; TEMP 97.4
--- NOTE | 2020-11-17 14:02 | ED ---
General Adult HPI - General Chief complaint: Nausea/Vomiting/Diarrhea Stated complaint: Covid+/non verbal/pain Time Seen by Provider: 11/17/20 13:31 Source: family Mode of arrival: wheelchair - History of Present Illness Initial comments: Dictation was produced using [employer] dictation software. please excuse any grammatical, word or spelling errors. This patient was cared for during a federal and state declared state of emergency secondary to Covid 19 Chief Complaint: 25-year-old female with mental disability presents to the emergency department for poor appetite, nausea and vomiting. History of Present Illness: Patient is 25-year-old female she has past medical history of some sort of unspecified mental retardation as described by patient's mother. She is brought in by mother who provides history of present illness. She states that patient has been diagnosed with COVID-19 last Saturday. She isn't better for almost about a week. States that she's been improving however the last 2 days she's been making herself throw up. According to mother patient does this whenever she has phlegm that she wants to cough up. She has been able to drink however has been treated last. She otherwise has been behaving normally. Mother is also concerned that patient having some right-sided facial pain because she's been waving her hands in that area. The ROS documented in this emergency department record has been reviewed and confirmed by me. Those systems with pertinent positive or negative responses have been documented in the HPI. All other systems are other negative and/or noncontributory. PHYSICAL EXAM: General Impression: Alert, not in acute distress HEENT: Normocephalic atraumatic, extra-ocular movements intact, pupils equal and reactive to light bilaterally, mucous membranes moist. Cardiovascular: Heart regular rate and rhythm Chest: no retractions, no tachypnea Musculoskeletal: no peripheral edema Motor: no focal deficits noted Neurological: CN II-XII grossly intact, no focal motor or sensory deficits noted, moving all shows grossly Skin: Intact with no visualized rashes ED course: 25-year-old female with history of mental retardation since presents to the emergency department for medical evaluation. Mother is sherif rned that patient having symptoms of Covid that she was diagnosed with approximately one week ago. Seems to be active and per usual grandmother. She's concerned that she is suffering from pneumonia because of certain behaviors that she is noted. Vital signs upon arrival shows findings within acceptable limits. Laboratory evaluation obtained. CBC, metabolic panel, urinalysis negative per chest x-ray appears stable. Patient reevaluated at bedside 2:50 PM stable medical condition. Mother is agreeable with discharge. Advised follow-up with primary care physician. - Related Data Home Medications Medication Instructions Recorded Confirmed L.acidoph,Paracasei, B.lactis 1 cap PO DAILY 08/29/17 08/29/17 [Probiotic] Previous Rx's Medication Instructions Recorded Albuterol Sulfate [Proventil Hfa] 2 puff INHALATION QID #1 inhaler 09/02/17 Amoxicillin/Potassium Clav 1 tab PO Q12HR #20 tab 09/02/17 [Augmentin 500-125 Tablet] Budesonide/Formoterol Fumarate 2 puff INHALATION BID #1 inhaler 09/02/17 [Symbicort 80-4.5 Mcg Inhaler] Metoprolol Tartrate [Lopressor] 12.5 mg PO DAILY #30 dose 09/02/17 Nystatin 100,000Unit/gm Cream 1 applic TOPICAL BID applic 09/02/17 [Mycostatin Cream] Allergies Allergy/AdvReac Type Severity Reaction Status Date / Time No Known Allergies Allergy Verified 11/17/20 12:57 Review of Systems ROS Statement: Those systems with pertinent positive or pertinent negative responses have been documented in the HPI. ROS Other: All systems not noted in ROS Statement are negative. 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 Had seizures last one 7 years ago, mastiodectomy, Ablation ovarian. (to end menstruation) History of Any Multi-Drug Resistant Organisms: None Reported Past Surgical History: Ear Surgery Additional Past Surgical History / Comment(s): mastoidectomy, Ear tubes 7 sets. Past Anesthesia/Blood Transfusion Reactions: No Reported Reaction Past Psychological History: No Psychological Hx Reported Smoking Status: Never smoker Past Alcohol Use History: None Reported Past Drug Use History: None Reported Course Vital Signs 11/17/20 11/17/20 12:57 13:17 Temperature 97.4 F L Pulse Rate 68 Respiratory 16 Rate O2 Sat by Pulse 90 L 97 Oximetry Medical Decision Making - Lab Data Result diagrams: 11/17/20 14:05 11/17/20 14:05 Lab Results 11/17/20 11/17/20 11/17/20 Range/Units 14:05 14:05 14:05 WBC 4.6 (3.8-10.6) k/uL RBC 5.80 H (3.80-5.40) m/uL Hgb 15.6 (11.4-16.0) gm/dL Hct 46.3 H (34.0-46.0) % MCV 79.9 L (80.0-100.0) fL MCH 27.0 (25.0-35.0) pg MCHC 33.7 (31.0-37.0) g/dL RDW 12.6 (11.5-15.5) % Plt Count 195 (150-450) k/uL MPV 6.9 Neutrophils % 35 % Lymphocytes % 54 % Monocytes % 7 % Eosinophils % 1 % Basophils % 1 % Neutrophils # 1.6 (1.3-7.7) k/uL Lymphocytes # 2.5 (1.0-4.8) k/uL Monocytes # 0.3 (0-1.0) k/uL Eosinophils # 0.0 (0-0.7) k/uL Basophils # 0.0 (0-0.2) k/uL Sodium 142 (137-145) mmol/L Potassium 3.9 (3.5-5.1) mmol/L Chloride 105 (98-107) mmol/L Carbon Dioxide 27 (22-30) mmol/L Anion Gap 10 mmol/L BUN 13 (7-17) mg/dL Creatinine 0.68 (0.52-1.04) mg/dL Est GFR (CKD-EPI)AfAm >90 (>60 ml/min/1.73 sqM) Est GFR (CKD-EPI)NonAf >90 (>60 ml/min/1.73 sqM) Glucose 96 (74-99) mg/dL Calcium 9.3 (8.4-10.2) mg/dL Urine Color Yellow Urine Appearance Clear (Clear) Urine pH 6.0 (5.0-8.0) Ur Specific [place] 1.031 (1.001-1.035) Urine Protein 1+ H (Negative) Urine Glucose (UA) Negative (Negative) Urine Ketones Negative (Negative) Urine Blood Moderate H (Negative) Urine Nitrite Negative (Negative) Urine Bilirubin Negative (Negative) Urine Urobilinogen 2.0 (<2.0) mg/dL Ur Leukocyte Esterase Large H (Negative) Urine RBC 4 (0-5) /hpf Urine WBC 5 (0-5) /hpf Ur Squamous Epith Cells 2 (0-4) /hpf Urine Bacteria Rare H (None) /hpf Urine Mucus Few H (None) /hpf Disposition Clinical Impression: Wellness examination Disposition: HOME SELF-CARE Instructions (If sedation given, give patient instructions): Acute Nausea and Vomiting (ED) Is patient prescribed a controlled substance at d/c from ED?: No Referrals: Kelly Lyn MD [Primary Care Provider] - 1-2 days Time of Disposition: 14:51
[2020-11-17 14:20] LABS: Basophils % (A) 1 %; Eosinophils % (A) 1 %; HCT 46.3 % (34.0-46.0); HGB 15.6 gm/dL (11.4-16.0); Lymphocytes # (A) 2.5 k/uL (1.0-4.8); Lymphocytes % (A) 54 %; MCHC 33.7 g/dL (31.0-37.0); MCV 79.9 fL (80.0-100.0); Mean Platelet Volume 6.9; Monocytes # (A) 0.3 k/uL (0-1.0); Monocytes % (A) 7 %; Neutrophils # (A) 1.6 k/uL (1.3-7.7); Neutrophils % (A) 35 %; Platelet Count 195 k/uL (150-450); RDW 12.6 % (11.5-15.5); WBC 4.6 k/uL (3.8-10.6)
[2020-11-17 14:30] LABS: African American GFR (CKD) >90 (>60 ml/min/1.73 sqM); Anion Gap 10 mmol/L; Blood Urea Nitrogen 13 mg/dL (7-17); Calcium 9.3 mg/dL (8.4-10.2); Carbon Dioxide 27 mmol/L (22-30); Chloride 105 mmol/L (98-107); Glucose 96 mg/dL (74-99); Non-African American GFR(CKD) >90 (>60 ml/min/1.73 sqM); Potassium 3.9 mmol/L (3.5-5.1); Sodium 142 mmol/L (137-145)
[2020-11-17 14:37] LABS: Appearance,Urine Clear (Clear); Bacteria,Urine Rare /hpf; Bilirubin,Urine Negative (Negative); Blood,Urine Moderate (Negative); Color,Urine Yellow; Glucose,Urine (UA) Negative (Negative); Ketones,Urine Negative (Negative); Leukocyte Esterase,Urine Large (Negative); Mucus,Urine Few /hpf; Nitrite,Urine Negative (Negative); Protein,Urine 1+ (Negative); RBC,Urine 4 /hpf (0-5); Specific Gravity,Urine 1.031 (1.001-1.035); Squamous Epithelial Cell,Urine 2 /hpf (0-4); WBC,Urine 5 /hpf (0-5)
--- NOTE | 2020-11-17 14:45 | XR ---
EXAMINATION TYPE: XR chest 1V portable DATE OF EXAM: 11/17/2020 COMPARISON: 07/28/2019 HISTORY: Cough TECHNIQUE: Single frontal view of the chest is obtained. FINDINGS: Persistent patchy bilateral infiltrates unchanged. Scoliosis and cardiomegaly stable. No p leural effusion or pneumothorax. Right costophrenic angle not included on the exam. IMPRESSION: Stable bilateral patchy infiltrate
== END 2020-11-17 14:53 | disposition home or self-care (01) ==
LOC: EC 12:38
DX: Z00.00 Encounter for general adult medical examination without abnormal findings (principal)
CPT/HCPCS: 36415; 71045; 80048; 81001; 85025; 99283

== ENCOUNTER 2021-05-28 16:02 | Emergency (ER) | payer OTHER ==
[2021-05-28 16:07] VITALS: RESP 18; TEMP 98.4
[2021-05-28] MEDS ORDERED: LORazepam 2 MG/ML INJ IM STA (16:31)
--- NOTE | 2021-05-28 17:34 | ED ---
General Adult HPI - General Chief complaint: Head Injury Stated complaint: Fall, head injury Time Seen by Provider: 05/28/21 16:15 Source: family, RN notes reviewed Mode of arrival: wheelchair Limitations: language barrier, altered mental status, physical limitation - History of Present Illness Initial comments: Patient is a 25-year-old female that presents to the emergency room with mother who states that she fell yesterday and the back of her head. Mom notes the patient did have a goose egg with some swelling to the back of her head and neck. Mom notes that today all signs and symptoms have resolved. Mom notes that patient does have a mental disability that is unnamed. Mom states that she does not think patient will sit still for a computed tomography scan but would like to try anyways. Patient was otherwise well-appearing. Mom notes she is acting her baseline just showing some signs of headache and pain. Mom denied any other issues or complaints. - Related Data Home Medications Medication Instructions Recorded Confirmed L.acidoph,Paracasei, B.lactis 1 cap PO DAILY 08/29/17 08/29/17 [Probiotic] Previous Rx's Medication Instructions Recorded Albuterol Sulfate [Proventil Hfa] 2 puff INHALATION QID #1 inhaler 09/02/17 Amoxicillin/Potassium Clav 1 tab PO Q12HR #20 tab 09/02/17 [Augmentin 500-125 Tablet] Budesonide/Formoterol Fumarate 2 puff INHALATION BID #1 inhaler 09/02/17 [Symbicort 80-4.5 Mcg Inhaler] Metoprolol Tartrate [Lopressor] 12.5 mg PO DAILY #30 dose 09/02/17 Nystatin 100,000Unit/gm Cream 1 applic TOPICAL BID applic 09/02/17 [Mycostatin Cream] Allergies Allergy/AdvReac Type Severity Reaction Status Date / Time No Known Allergies Allergy Verified 05/28/21 16:07 Review of Systems ROS Statement: Those systems with pertinent positive or pertinent negative responses have been documented in the HPI. ROS Other: All systems not noted in ROS Statement are negative. 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 Had seizures last one 7 years ago, mastiodectomy, Ablation ovarian. (to end menstruation) History of Any Multi-Drug Resistant Organisms: None Reported Past Surgical History: Ear Surgery Additional Past Surgical History / Comment(s): mastoidectomy, Ear tubes 7 sets. Past Anesthesia/Blood Transfusion Reactions: No Reported Reaction Past Psychological History: No Psychological Hx Reported Smoking Status: Never smoker Past Alcohol Use History: None Reported Past Drug Use History: None Reported General Exam Limitations: language barrier, altered mental status, physical limitation Head exam: Present: atraumatic, normocephalic, normal inspection Eye exam: Present: normal appearance, PERRL, EOMI. Absent: scleral icterus, conjunctival injection, periorbital swelling ENT exam: Present: normal exam, mucous membranes moist Neck exam: Present: normal inspection Respiratory exam: Present: normal lung sounds bilaterally. Absent: respiratory distress, wheezes, rales, rhonchi, stridor Cardiovascular Exam: Present: regular rate, normal rhythm, normal heart sounds. Absent: systolic murmur, diastolic murmur, rubs, gallop, clicks Extremities exam: Present: normal inspection, full ROM, normal capillary refill. Absent: tenderness, pedal edema, joint swelling, calf tenderness Neurological exam: Present: alert, oriented X3 Psychiatric exam: Present: normal affect, normal mood Skin exam: Present: warm, dry, intact, normal color. Absent: rash Course Vital Signs 05/28/21 16:04 Temperature 98.4 F Pulse Rate 81 Respiratory 18 Rate O2 Sat by Pulse 97 Oximetry Medical Decision Making - Medical Decision Making 45-year-old female status post fall yesterday. Computed tomography scan, 2 g Ativan ordered. On for computed tomography scan was unable to be done due to uncooperativeness outpatient due to her disability. Mom is agreeable with discharge home with conservative management for a possible concussion with headache. Case discussed with Dr. Leal, patient can discharge home. Disposition Clinical Impression: Concussion, Headache Disposition: HOME SELF-CARE Instructions (If sedation given, give patient instructions): Concussion (ED) Additional Instructions: Please return to the Emergency Department if symptoms worsen or any other concerns. Follow-up with primary care 1-2 days. Continue take Tylenol Motrin as needed for pain. Is patient prescribed a controlled substance at d/c from ED?: No Referrals: Kelly Lny MD [Primary Care Provider] - 1-2 days Time of Disposition: 17:33
[2021-05-28 18:04] VITALS: PULSE 80
== END 2021-05-28 17:53 | disposition home or self-care (01) ==
LOC: EC 16:02
DX: S06.0X0A Concussion without loss of consciousness, initial encounter (principal); R40.2362 Coma scale, best motor response, obeys commands, at arrival to emergency department; R40.2142 Coma scale, eyes open, spontaneous, at arrival to emergency department; R40.2252 Coma scale, best verbal response, oriented, at arrival to emergency department; W19.XXXA Unspecified fall, initial encounter
CPT/HCPCS: 99283; 96372; J2060

== ENCOUNTER → 2022-12-24 | Outpatient (CLI) | payer OTHER ==
[2022-12-24 16:10] LABS: Basophils # (A) 0.04 X 10*3/uL; Basophils % (A) 1.1 %; Eosinophils # (A) 0.06 X 10*3/uL; Eosinophils % (A) 1.6 %; HGB 15.1 d/dL; Lymphocytes % (A) 55.9 %; MCH 26.4 pg; MCHC 31.5 d/dL; MCV 83.8 FL; Mean Platelet Volume 9.8 FL; Monocytes # (A) 0.35 X 10*3/uL; Monocytes % (A) 9.3 %; NRBC Per 100 WBC 0 X 10*3/uL; Neutrophils % (A) 31.8 %; Platelet Count 197 X 10*3/uL; RBC 5.73 X 10*6/uL; RDW 12.3 %; WBC 3.76 X 10*3/uL
[2022-12-24 16:26] LABS: ALT 17 U/L; AST 18 U/L; Albumin 4.3 d/dL; Albumin/Globulin Ratio 2.05 Ratio; Alkaline Phosphatase 62 U/L; BUN/Creat Ratio 16.38 Ratio; Blood Urea Nitrogen 13.1 mg/dL; Calcium 9.2 mg/dL; Carbon Dioxide 23.8 mmol/L; Chloride 106 mmol/L; Chol/HDL Ratio 3.59 Ratio; Globulin 2.1 d/dL; Glucose 81 mg/dL; Iron 126 UG/DL; LDL Cholesterol,Calculated 103.8 mg/dL; Potassium 4.2 mmol/L; Sodium 143 mmol/L; Total Bilirubin 0.6 mg/dL; Total Iron Binding Capacity 395 UG/DL; Total Protein 6.4 d/dL; VLDL Calculation 13.08 mg/dL
[2022-12-25 00:24] LABS: Ferritin 83 ng/mL
== END | disposition home or self-care (01) ==
LOC: LABWHC1 09:20
PROVIDERS: ATTEND Family Medicine
DX: Z00.01 Encounter for general adult medical examination with abnormal findings (principal); Z99.3 Dependence on wheelchair; Z71.3 Dietary counseling and surveillance; Z71.82 Exercise counseling; R62.50 Unspecified lack of expected normal physiological development in childhood
CPT/HCPCS: 36415; 80053; 80061; 82306; 82607; 82728; 82746; 83036; 83540; 83550; 84443; 85025

== ENCOUNTER 2023-09-20 09:19 | Emergency (ER) | payer OTHER ==
[2023-09-20] MEDS: IBUPROFEN ORAL SUSP 100 MG/5 ML CUP PO ONE (10:56)
--- NOTE | 2023-09-20 11:12 | ED ---
URI HPI - General Chief Complaint: Upper Respiratory Infection Stated Complaint: Fever Time Seen by Provider: 09/20/23 09:30 Source: family, RN notes reviewed Mode of arrival: wheelchair Limitations: language barrier, altered mental status, physical limitation - Related Data Home Medications Medication Instructions Recorded Confirmed L.acidoph,Paracasei, B.lactis 1 cap PO W/SUPPER 08/29/17 05/28/21 [Probiotic] Medroxyprogesterone Acetate 150 mg IM Q84D 05/28/21 05/28/21 [Depo-Provera] Multivitamins, Thera [Multivitamin 1 tab PO DAILY 05/28/21 05/28/21 (formulary)] Previous Rx's Medication Instructions Recorded Doxycycline Hyclate 100 mg PO BID #20 capsule 09/20/23 Oseltamivir 6Mg/ml Oral Susp 60 mg PO BID #100 ml 09/20/23 [Tamiflu] Allergies Allergy/AdvReac Type Severity Reaction Status Date / Time No Known Allergies Allergy Verified 09/20/23 09:42 Review of Systems ROS Statement: Those systems with pertinent positive or pertinent negative responses have been documented in the HPI. ROS Other: All systems not noted in ROS Statement are negative. 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 Had seizures last one 7 years ago, mastiodectomy, Ablation ovarian. (to end menstruation) History of Any Multi-Drug Resistant Organisms: None Reported Past Surgical History: Ear Surgery Additional Past Surgical History / Comment(s): mastoidectomy, Ear tubes 7 sets. Past Anesthesia/Blood Transfusion Reactions: No Reported Reaction Past Psychological History: No Psychological Hx Reported Smoking Status: Never smoker Past Alcohol Use History: None Reported Past Drug Use History: None Reported General Exam Limitations: language barrier, altered mental status, physical limitation General appearance: lethargic Head exam: Present: atraumatic, normocephalic, normal inspection Eye exam: Present: normal appearance, PERRL, EOMI. Absent: scleral icterus, conjunctival injection, periorbital swelling Neck exam: Present: lymphadenopathy (anterior cervical) Respiratory exam: Present: normal lung sounds bilaterally. Absent: respiratory distress, wheezes, rales, rhonchi, stridor Cardiovascular Exam: Present: regular rate, normal rhythm, tachycardia, normal heart sounds GI/Abdominal exam: Present: soft, normal bowel sounds. Absent: distended, tenderness, guarding, rebound, rigid Neurological exam: Present: alert Course Vital Signs 09/20/23 09/20/23 09/20/23 09:40 09:52 11:35 Temperature 102.2 F H 99.3 F Pulse Rate 142 H 130 H Respiratory 22 18 20 Rate Blood Pressure O2 Sat by Pulse 97 94 L Oximetry 09/20/23 12:59 Temperature 98.0 F Pulse Rate 83 Respiratory 16 Rate Blood Pressure 114/76 O2 Sat by Pulse 98 Oximetry Medical Decision Making - Medical Decision Making Was pt. sent in by a medical professional or institution (, PA, ELECTRIC SIGN ASSEMBLER, urgent care, hospital, or halfway...) When possible be specific @ -No Did you speak to anyone other than the patient for history (EMS, parent, family, police, friend...)? What history was obtained from this source @ -Information was obtained from mother. Did you review nursing and triage notes (agree or disagree)? Why? @ -I reviewed and agree with nursing and triage notes Were old charts reviewed (outside hosp., previous admission, EMS record, old EKG, old radiological studies, urgent care reports/EKG's, halfway records)? Report findings @ -No old charts were reviewed Differential Diagnosis (chest pain, altered mental status, abdominal pain women, abdominal pain men, vaginal bleeding, weakness, fever, dyspnea, syncope, headache, dizziness, GI bleed, back pain, seizure, CVA, palpatations, mental health, musculoskeletal)? @ -Differential Fever: Pneumonia, viral URI, endocarditis, myocarditis, pericarditis, otitis, sinusitis, peritonsillar Abscess, retropharyngeal Abscess, epiglottitis, peritonitis, appendicitis, Elle cystitis, diverticulitis, hepatitis, colitis, UTI, PID, TOA, pyelonephritis, prostatitis, epididymitis, meningitis, encephalitis, pulmonary embolism, CVA, thyroid storm, pancreatitis, adrenal crisis, cavernous sinus thrombosis, this is not meant to be an all-inclusive list. EKG interpreted by me (3pts min.). @ -None X-rays interpreted by me (1pt min.). @ -Chest x-ray revealed hilar and possible right lower lobe infiltrates. Correlate for pneumonia as determined by radiology. CT interpreted by me (1pt min.). @ -None done U/S interpreted by me (1pt. min.). @ -None done What testing was considered but not performed or refused? (CT, X-rays, U/S, labs)? Why? @ -None What meds were considered but not given or refused? Why? @ -None Did you discuss the management of the patient with other professionals (prof natalee i.e. , PA, ELECTRIC SIGN ASSEMBLER, lab, RT, psych nurse, social media campaign manager, mine administrator supervisor, teacher, chief security and safety officer, case investigator)? Give summary @ -No Was smoking cessation discussed for >3mins.? @ -No Was critical care preformed (if so, how long)? @ -No Were there social determinants of health that impacted care today? How? (Homelessness, low income, unemployed, alcoholism, drug addiction, transportation, low edu. Level, literacy, decrease access to med. care, [facility], rehab)? @ -No Was there de-escalation of care discussed even if they declined (Discuss DNR or withdrawal of care, Hospice)? DNR status @ -No What co-morbidities impacted this encounter? (DM, HTN, Smoking, COPD, CAD, Cancer, CVA, ARF, Chemo, Hep., AIDS, mental health diagnosis, sleep apnea, morbid obesity)? @ -None Was patient admitted / discharged? Hospital course, mention meds given and route, prescriptions, significant lab abnormalities, going to OR and other pertinent info. @ -Discharge. 27-year-old female presented with elevated fever, cough, congestion. Respiratory panel revealed positive influenza A. Patient was given ibuprofen and Tylenol to lower fever. Patient's heart rate and temperature were responsive to Tylenol administration. Undiagnosed new problem with uncertain prognosis? @ -No Drug Therapy requiring intensive monitoring for toxicity (Heparin, Nitro, Insulin, Cardizem)? @ -No Were any procedures done? @ -No Diagnosis/symptom? @ -Influenza A Acute, or Chronic, or Acute on Chronic? @ -Acute Uncomplicated (without systemic symptoms) or Complicated (systemic symptoms)? @ -Uncomplicated Side effects of treatment? @ -No Exacerbation, Progression, or Severe Exacerbation? @ -No Poses a threat to life or bodily function? How? (Chest pain, [place], [place], pneumonia, PE, COPD, DKA, ARF, appy, cholecystitis, CVA, Diverticulitis, Homicidal, Suicidal, threat to staff... and all critical care pts) @ -No - Lab Data Lab Results 09/20/23 Range/Units 10:07 Influenza Type A (PCR) Detected A (Not Detectd) Influenza Type B (PCR) Not Detected (Not Detectd) RSV (PCR) Not Detected (Not Detectd) SARS-CoV-2 (PCR) Not Detected (Not Detectd) Disposition Clinical Impression: Influenza Disposition: HOME SELF-CARE Condition: Good Instructions (If sedation given, give patient instructions): Influenza (ED) Additional Instructions: Please return to the Emergency Department if symptoms worsen or any other concerns. Discuss with patient's mom symptomatic control at home rotating Tylenol and Motrin as needed for temperatures and body aches. Continue with oral rehydration Prescriptions: Doxycycline Hyclate 100 mg PO BID #20 capsule Oseltamivir 6Mg/ml Oral Susp [Tamiflu] 60 mg PO BID #100 ml Is patient prescribed a controlled substance at d/c from ED?: No Referrals: Kelly Lyn MD [Primary Care Provider] - 1-2 days
[2023-09-20] MEDS: SODIUM CHLORIDE 0.9% 1,000 ML IV STA (11:24)
--- NOTE | 2023-09-20 11:38 | XR ---
EXAMINATION TYPE: XR chest 2V DATE OF EXAM: 09/20/2023 COMPARISON: 11/17/2020 INDICATION: Fever, cough TECHNIQUE: Frontal and lateral views of the chest are obtained. FINDINGS: The heart size is enlarged. The pulmonary vasculature is normal. There is a moderate left perihilar infiltrate. Some mild right lower lobe infiltrate may be present. Scoliosis is present.. IMPRESSION: 1. Left perihilar and possible right lower lobe infiltrates. Correlate for pneumonia. Follow-up is re commended. 2. Cardiomegaly
[2023-09-20] MEDS: ACETAMINOPHEN ORAL SUSP 160 MG/5 ML CUP PO ONE (12:05)
[2023-09-20 13:30] VITALS: BP 114/76; PULSE 83; RESP 16; TEMP 98
== END 2023-09-20 13:22 | disposition home or self-care (01) ==
LOC: EC 09:19
DX: J10.1 Influenza due to other identified influenza virus with other respiratory manifestations (principal); Z20.822 Contact with and (suspected) exposure to COVID-19
CPT/HCPCS: 71046; 87636; 96360; 99283

== ENCOUNTER → 2024-01-02 | Outpatient (CLI) | payer OTHER ==
[2024-01-02 15:40] LABS: Basophils # (A) 0.04 X 10*3/uL (0.00-0.10); Eosinophils # (A) 0.01 X 10*3/uL (0.04-0.35); Eosinophils % (A) 0.2 %; HCT 47.9 % (37.2-46.3); HGB 16.4 g/dL (12.0-15.0); Lymphocytes # (A) 2.27 X 10*3/uL (0.90-5.00); Lymphocytes % (A) 55.4 %; MCH 28.5 pg (27.0-32.0); MCHC 34.2 g/dL (32.0-37.0); MCV 83.3 FL (80.0-97.0); Mean Platelet Volume 10.4 FL (9.5-12.2); Monocytes # (A) 0.35 X 10*3/uL (0.20-1.00); Monocytes % (A) 8.5 %; NRBC Per 100 WBC 0 X 10*3/uL (0.00-0.01); Neutrophils # (A) 1.42 X 10*3/uL (1.80-7.70); Neutrophils % (A) 34.7 %; Platelet Count 237 X 10*3/uL (140-440); RBC 5.75 X 10*6/uL (4.10-5.20); RDW 12.7 % (11.5-14.5)
[2024-01-02 16:15] LABS: % Iron Saturation 26.25 (12.00-45.00); ALT 14 U/L (8-44); AST 20 U/L (13-35); Albumin 4.3 g/dL (3.8-4.9); Albumin/Globulin Ratio 1.87 Ratio (1.60-3.17); Alkaline Phosphatase 67 U/L (41-126); BUN/Creat Ratio 19.12 Ratio (12.00-20.00); Blood Urea Nitrogen 15.3 mg/dL (9.0-27.0); Calcium 9.5 mg/dL (8.7-10.3); Carbon Dioxide 23.5 mmol/L (21.6-31.8); Chloride 103 mmol/L (96-109); Chol/HDL Ratio 3.54 Ratio; Ferritin 87.2 ng/mL (10.0-291.0); Globulin 2.3 g/dL (1.6-3.3); Glucose 92 mg/dL (70-110); Iron 105 UG/DL (50-170); LDL Cholesterol,Calculated 118.8 mg/dL (0.0-131.0); Potassium 4.2 mmol/L (3.5-5.5); Sodium 140 mmol/L (135-145); Total Bilirubin 0.5 mg/dL (0.3-1.2); Total Iron Binding Capacity 400 UG/DL (228-460); Total Protein 6.6 g/dL (6.2-8.2); VLDL Calculation 11.02 mg/dL (5.00-40.00)
== END | disposition home or self-care (01) ==
LOC: LABWHC1 08:50
PROVIDERS: ATTEND Family Medicine
DX: Z30.42 Encounter for surveillance of injectable contraceptive (principal); R62.50 Unspecified lack of expected normal physiological development in childhood; Z71.3 Dietary counseling and surveillance
CPT/HCPCS: 36415; 80053; 80061; 82306; 82607; 82728; 82746; 83036; 83540; 83550; 84443; 85025

== ENCOUNTER 2024-05-29 18:55 | Emergency (ER) | payer OTHER ==
[2024-05-29 19:10] VITALS: PULSE 118; RESP 16; TEMP 100.8
--- NOTE | 2024-05-29 19:27 | ED ---
Fever HPI - General Source: family, RN notes reviewed Mode of arrival: wheelchair Limitations: no limitations <ArianMela - Last Filed: 05/29/24 19:26> - General Source: family, RN notes reviewed, old records reviewed, Caregiver Mode of arrival: wheelchair Limitations: no limitations - History of Present Illness MD Complaint: fever, malaise, other (Cough) -: days(s) Temperature Source: subjective Associated Symptoms: chills, nasal congestion, sore throat, cough Treatments Prior to Arrival: none <Alexander Hazel - Last Filed: 05/30/24 17:13> - General Chief Complaint: Fever Stated Complaint: Pain,Lethargic Time Seen by Provider: 05/29/24 19:26 - History of Present Illness Initial Comments: Quick [id number] female with history of chromosomal abnormality presenting with family for fever x 1 day. Family reports patient refuses to eat today, has had nasal congestion, and has been tearful. Patient is nonverbal. Patient has a history of pneumonia. (Mela Don) This is a 28-year-old female presenting for 1 day of fever with decreased oral intake, patient is nonverbal, history of pneumonia per mom at bedside (Alexander Hazel) - Related Data Home Medications Medication Instructions Recorded Confirmed L.acidoph,Paracasei, B.lactis 1 cap PO W/SUPPER 08/29/17 05/28/21 [Probiotic] Medroxyprogesterone Acetate 150 mg IM Q84D 05/28/21 05/28/21 [Depo-Provera] Multivitamins, Thera [Multivitamin 1 tab PO DAILY 05/28/21 05/28/21 (formulary)] Previous Rx's Medication Instructions Recorded Doxycycline Hyclate 100 mg PO BID #20 capsule 09/20/23 Oseltamivir 6Mg/ml Oral Susp 60 mg PO BID #100 ml 09/20/23 [Tamiflu] Acetaminophen Susp (Dye Free) 400 mg PO Q6HR #240 ml 05/29/24 [Tylenol Oral Susp For Peds (Dye Free)] Albuterol Inhaler [Ventolin Hfa 1 - 2 puff INHALATION Q6H PRN #1 05/29/24 Inhaler] each Amoxic-Pot Clav 400-57Mg/5Ml 20 ml PO Q12H #400 ml 05/29/24 [Augmentin 400-57 mg/5 ml Susp] Ibuprofen Oral Susp [Motrin Oral 400 mg PO Q6HR #240 ml 05/29/24 Susp] Allergies Allergy/AdvReac Type Severity Reaction Status Date / Time No Known Allergies Allergy Verified 05/29/24 19:10 Review of Systems ROS Other: All systems not noted in ROS Statement are negative. <Mela Don - Last Filed: 05/29/24 19:26> ROS Other: All systems not noted in ROS Statement are negative. <Alexander Hazel - Last Filed: 05/30/24 17:13> ROS Statement: Those systems with pertinent positive or pertinent negative responses have been documented in the HPI. 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 Had seizures last one 7 years ago, mastiodectomy, Ablation ovarian. (to end menstruation) History of Any Multi-Drug Resistant Organisms: None Reported Past Surgical History: Ear Surgery Additional Past Surgical History / Comment(s): mastoidectomy, Ear tubes 7 sets. Past Anesthesia/Blood Transfusion Reactions: No Reported Reaction Past Psychological History: No Psychological Hx Reported Smoking Status: Never smoker Past Alcohol Use History: None Reported Past Drug Use History: None Reported <Mela Don - Last Filed: 05/29/24 19:26> General Exam Limitations: no limitations <Mela Don - Last Filed: 05/29/24 19:26> General appearance: alert, in no apparent distress Head exam: Present: atraumatic, normocephalic, normal inspection Eye exam: Present: normal appearance, PERRL, EOMI. Absent: scleral icterus, conjunctival injection, periorbital swelling ENT exam: Present: normal exam, mucous membranes moist Neck exam: Present: normal inspection. Absent: tenderness, meningismus, lymphadenopathy Respiratory exam: Present: normal lung sounds bilaterally. Absent: respiratory distress, wheezes, rales, rhonchi, stridor Cardiovascular Exam: Present: regular rate, normal rhythm, normal heart sounds. Absent: systolic murmur, diastolic murmur, rubs, gallop, clicks GI/Abdominal exam: Present: soft, normal bowel sounds. Absent: distended, tenderness, guarding, rebound, rigid Extremities exam: Present: normal inspection, full ROM, normal capillary refill. Absent: tenderness, pedal edema, joint swelling, calf tenderness Back exam: Present: normal inspection Neurological exam: Present: alert, oriented X3, CN II-XII intact Psychiatric exam: Present: normal affect, normal mood Skin exam: Present: warm, dry, intact, normal color. Absent: rash <Alexander Hazel - Last Filed: 05/30/24 17:13> - General Exam Comments Initial Comments: Visual Physical Exam Vital signs reviewed General: Well-appearing, nontoxic, no acute distress. Head: Normocephalic, atraumatic Eyes: PERRLA, EOMI ENT: Airway patent Chest: Nonlabored breathing Skin: No visual rash, normal skin tone Neuro: Alert and oriented 3 Musculoskeletal: No gross abnormalities (Mela Don) Course <Alexander Hazel - Last Filed: 05/30/24 17:13> Vital Signs 05/29/24 19:04 Temperature 100.8 F H Pulse Rate 118 H Respiratory 16 Rate O2 Sat by Pulse 97 Oximetry - Reevaluation(s) Reevaluation #1: 05/29/24 Medical records reviewed (Alexander Hazel) Reevaluation #2: 05/29/24 Patient symptoms improving, blood pressure normal, fever improved (Alexander Hazel) Reevaluation #3: 05/29/24 Patient informed of results and questions answered (Alexander Hazel) Reevaluation #4: Was pt. sent in by a medical professional or institution (, PA, CONCRETE PLACEMENT EQUIPMENT OPERATOR, urgent care, hospital, or usp...) When possible be specific @ -no Did you speak to anyone other than the patient for history (EMS, parent, family, police, friend...)? What history was obtained from this source @ -no Did you review nursing and triage notes (agree or disagree)? Why? @ -agree Are old charts reviewed (outside hosp., previous admission, EMS record, old EKG, old radiological studies, urgent care reports/EKG's, usp records)? Report findings @ -yes Differential Diagnosis (chest pain, altered mental status, abdominal pain women, abdominal pain men, vaginal bleeding, weakness, fever, dyspnea, syncope, headache, dizziness, GI bleed, back pain, seizure, CVA, palpatations, mental health, musculoskeletal)? @ -prior EKG interpreted by me (3pts min.). @ -no X-rays interpreted by me (1pt min.). @ -yes positive for pneumonia CT interpreted by me (1pt min.). @ -no U/S interpreted by me (1pt. min.). @ -no What testing was considered but not performed or refused? (CT, X-rays, U/S, labs)? Why? @ -none What meds were considered but not given or refused? Why? @ -none Did you discuss the management of the patient with other professionals (professionals i.e. DrJayleen, PA, CONCRETE PLACEMENT EQUIPMENT OPERATOR, lab, RT, psych nurse, nursing home social worker, email producer, teacher, court registry officer, case management associate)? Give summary @ -no Was smoking cessation discussed for >3mins.? @ -no Was critical care preformed (if so, how long)? @ -no Were there social determinants of health that impacted care today? How? (Homelessness, low income, unemployed, alcoholism, drug addiction, transportation, low edu. Level, literacy, decrease access to med. care, halfway, rehab)? @ -none Was there de-escalation of care discussed even if they declined (Discuss DNR or withdrawal of care, Hospice)? DNR status @ -no What co-morbidities impacted this encounter? (DM, HTN, Smoking, COPD, CAD, Cancer, CVA, ARF, Chemo, Hep., AIDS, mental health diagnosis, sleep apnea, morbid obesity)? @ -none Was patient admitted / discharged? Hospital course, mention meds given and route, prescriptions, significant lab abnormalities, going to OR and other pertinent info. @ - 28 female to ER for evaluation with fever today. Patient has history of pneumonia does appear to have pneumonia on x-ray again today with fever able to take medications here in the emergency department and can be discharged home in no distress Discharge Undiagnosed new problem with uncertain prognosis? @ -no Drug Therapy requiring intensive monitoring for toxicity (Heparin, Nitro, Insulin, Cardizem)? @ -no Were any procedures done? @ -no Diagnosis/symptom? @ -Fever pneumonia Acute, or Chronic, or Acute on Chronic? @ -Acute Uncomplicated (without systemic symptoms) or Complicated (systemic symptoms)? @ -Complicated Side effects of treatment? @ -no Exacerbation, Progression, or Severe Exacerbation? @ -exacerbation Poses a threat to life or bodily function? How? (Chest pain, [place], [place], pneumonia, PE, COPD, DKA, ARF, appy, cholecystitis, CVA, Diverticulitis, Homicidal, Suicidal, threat to staff... and all critical care pts) @ -yes (Alexander Hazel) Medical Decision Making <Mela Don - Last Filed: 05/29/24 19:26> - Radiology Data Radiology results: report reviewed (Chest x-ray is positive for pneumonia), image reviewed <Alexander Hazel - Last Filed: 05/30/24 17:13> - Medical Decision Making I completed the quick note portion of this chart signed Mela Don PA-C (Mela Don) 28 female to ER for evaluation with fever today. Patient has history of pneumonia does appear to have pneumonia on x-ray again today with fever able to take medications here in the emergency department and can be discharged home in no distress (Alexander Hazel) - Lab Data Lab Results 05/29/24 Range/Units 19:14 Influenza Type A (PCR) Not Detected (Not Detectd) Influenza Type B (PCR) Not Detected (Not Detectd) RSV (PCR) Not Detected (Not Detectd) SARS-CoV-2 (PCR) Not Detected (Not Detectd) Disposition <Mela Don - Last Filed: 05/29/24 19:26> Is patient prescribed a controlled substance at d/c from ED?: No Time of Disposition: 22:00 <Alexander Hazel - Last Filed: 05/30/24 17:13> Clinical Impression: Fever, Pneumonia Disposition: HOME SELF-CARE Condition: Fair Instructions (If sedation given, give patient instructions): Fever in Children (ED), Community Acquired Pneumonia (ED) Prescriptions: Amoxic-Pot Clav 400-57Mg/5Ml [Augmentin 400-57 mg/5 ml Susp] 20 ml PO Q12H #400 ml Ibuprofen Oral Susp [Motrin Oral Susp] 400 mg PO Q6HR #240 ml Acetaminophen Susp (Dye Free) [Tylenol Oral Susp For Peds (Dye Free)] 400 mg PO Q6HR #240 ml Albuterol Inhaler [Ventolin Hfa Inhaler] 1 - 2 puff INHALATION Q6H PRN #1 each PRN Reason: Cough Referrals: Kelly Lyn MD [Primary Care Provider] - 1-2 days
--- NOTE | 2024-05-29 20:00 | XR ---
EXAMINATION TYPE: XR chest 2V DATE OF EXAM: 05/29/2024 7:51 PM COMPARISON: Chest radiographs from 09/20/2023 CLINICAL INDICATION: Female, 28 years old with history of fever; TECHNIQUE: XR chest 2V Frontal and lateral views of the chest. FINDINGS: Lungs/Pleura: Diffuse haziness to the left lung which may be increased from prior. There is no eviden ce of pleural effusion, focal consolidation, or pneumothorax. Pulmonary vascularity: Unremarkable. Heart/mediastinum: Cardiomediastinal silhouette is unremarkable. Musculoskeletal: No acute osseous pathology. Other findings: None IMPRESSION: Chronic haziness the left lung which may be slightly increased suggesting possible infection. [facility], , 05/29/2024 7:57 PM
[2024-05-29] MEDS: ACETAMINOPHEN ORAL SUSP 160 MG/5 ML CUP PO ONE (22:24)
[2024-05-29] MEDS: AMOXIC-POT CLAV 200-28.5MG/5ML 100 ML BOTTLE PO ONE (22:24)
[2024-05-29] MEDS: IBUPROFEN ORAL SUSP 100 MG/5 ML CUP PO ONE (22:24)
== END 2024-05-29 22:27 | disposition home or self-care (01) ==
LOC: EC 18:55
DX: R52 Pain, unspecified (principal); R53.83 Other fatigue; J18.9 Pneumonia, unspecified organism
CPT/HCPCS: 71046; 87636; 99283

== ENCOUNTER → 2024-08-21 | Outpatient (CLI) | payer OTHER ==
[2024-08-21 10:50] LABS: INR 1.5 (<1.2)
[2024-08-21 10:51] LABS: Partial Thromboplastin Time 24.3 sec (22.0-30.0); Prothrombin Time 15.7 sec (10.0-12.5)
[2024-08-21 15:05] LABS: Basophils # (A) 0.03 X 10*3/uL (0.00-0.10); Basophils % (A) 0.7 %; Eosinophils # (A) 0.04 X 10*3/uL (0.04-0.35); HCT 46.5 % (37.2-46.3); HGB 14.8 g/dL (12.0-15.0); Lymphocytes # (A) 1.88 X 10*3/uL (0.90-5.00); Lymphocytes % (A) 46.9 %; MCH 26.7 pg (27.0-32.0); MCHC 31.8 g/dL (32.0-37.0); MCV 83.8 FL (80.0-97.0); Mean Platelet Volume 9.6 FL (9.5-12.2); Monocytes # (A) 0.39 X 10*3/uL (0.20-1.00); Monocytes % (A) 9.7 %; NRBC Per 100 WBC 0 X 10*3/uL (0.00-0.01); Neutrophils # (A) 1.66 X 10*3/uL (1.80-7.70); Neutrophils % (A) 41.5 %; Platelet Count 189 X 10*3/uL (140-440); RBC 5.55 X 10*6/uL (4.10-5.20); RDW 13.2 % (11.5-14.5); WBC 4.01 X 10*3/uL (4.50-10.00)
[2024-08-21 15:22] LABS: Chol/HDL Ratio 3.86 Ratio; VLDL Calculation 16.46 mg/dL (5.00-40.00)
[2024-08-21 15:23] LABS: ALT 21 U/L (8-44); AST 22 U/L (13-35); Albumin 4.1 g/dL (3.8-4.9); Albumin/Globulin Ratio 1.95 Ratio (1.60-3.17); Alkaline Phosphatase 67 U/L (41-126); Blood Urea Nitrogen 11.2 mg/dL (9.0-27.0); Calcium 9.2 mg/dL (8.7-10.3); Carbon Dioxide 25.2 mmol/L (21.6-31.8); Chloride 106 mmol/L (96-109); Globulin 2.1 g/dL (1.6-3.3); Glucose 91 mg/dL (70-110); Potassium 4.2 mmol/L (3.5-5.5); Sodium 142 mmol/L (135-145); Total Bilirubin 0.4 mg/dL (0.3-1.2); Total Protein 6.2 g/dL (6.2-8.2)
== END | disposition home or self-care (01) ==
LOC: LABWHC1 10:10
PROVIDERS: ATTEND Family Medicine
DX: Z01.812 Encounter for preprocedural laboratory examination (principal); Q99.9 Chromosomal abnormality, unspecified
CPT/HCPCS: 36415; 80053; 80061; 82306; 82607; 82746; 83036; 84443; 85025; 85610; 85730